=== PATIENT | female | born 1945 | race Caucasian/White ===

== ENCOUNTER 2016-08-28 22:02 | Inpatient (IN) | payer MEDICARE ==
[~2016-08-28] VITALS: Ht 165.1 cm; Wt 123.0 kg
[~2016-08-28 22:02] MED LIST: ATEN-104 PO; LOSA100T PO; PROV10TA PO; SERO50TA PO
[2016-08-28 22:08] VITALS: PULSE 70; RESP 18; TEMP 97.8; O2SAT 95
[2016-08-28 22:11] VITALS: BP 201/88
[2016-08-28] MEDS ORDERED: LORazepam 2 MG/ML VIAL IV ONE (22:15)
[2016-08-28] MEDS ORDERED: LISI2.5T3 PO (22:24)
[2016-08-28] MEDS ORDERED: SERT25TA83 PO (22:24)
[2016-08-28] MEDS ORDERED: ATEN100T PO (22:24)
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
[2016-08-28 22:39] LABS: AUTOMATED NEUTROPHIL # 9.6 TH/MM3 (1.8-7.7); BASOPHIL # 0.1 TH/MM3 (0-0.2); BASOPHIL % 0.7 % (0.0-2.0); EOSINOPHIL # 0.1 TH/MM3 (0-0.4); EOSINOPHIL % 0.7 % (0.0-4.0); HEMATOCRIT 39.3 % (35.0-46.0); HEMO FLAGS DIFF FINAL; LYMPH % 14.4 % (9.0-44.0); LYMPHOCYTE # 1.8 TH/MM3 (1.0-4.8); MEAN CELL VOLUME 81.5 FL (80.0-100.0); MEAN CORPUSCULAR HEMOGLOBIN 27.7 PG (27.0-34.0); MEAN CORPUSCULAR HGB CONC 33.9 % (32.0-36.0); MONO % 6.3 % (0.0-8.0); NEUT % 77.9 % (16.0-70.0); PLATELET COUNT 258 TH/MM3 (150-450); RED BLOOD COUNT 4.82 MIL/MM3 (4.00-5.30); RED CELL DISTRIBUTION WIDTH 16.2 % (11.6-17.2); WHITE BLOOD COUNT 12.3 TH/MM3 (4.0-11.0)
[2016-08-28 22:54] LABS: ANION GAP 9 MEQ/L (5-15); AST (GOT) 58 U/L (15-37); BLOOD UREA NITROGEN 20 MG/DL (7-18); CHLORIDE 108 MEQ/L (98-107); GLOMERULAR FILTRATION RATE 43 ML/MIN (>89); POTASSIUM 3.8 MEQ/L (3.5-5.1); SODIUM (NA) 145 MEQ/L (136-145)
[2016-08-28 22:57] LABS: ALKALINE PHOSPHATASE 91 U/L (45-117); ALT (GPT) 71 U/L (10-53); TOTAL BILIRUBIN ADULT 0.7 MG/DL (0.2-1.0)
[2016-08-29] VITALS (7 sets, daily range): BP systolic 146–199; BP diastolic 71–89; PULSE 62–77; RESP 16–24; TEMP 98.6; O2SAT 94–98
[2016-08-29 00:41] LABS: AMPHETAMINE, URINE NEG (NEG); BARBITURATES, URINE NEG (NEG); COCAINE, URINE NEG (NEG)
[2016-08-29 00:45] LABS: BLOOD, URINE TRACE (NEG); COMMENT (UR) CULT NOT INDICATED; CULTURE IF INDICATED CULT NOT INDICATED; GLUCOSE,URINE NEG (NEG); HYALINE CAST, URINE INNUM /lpf (RARE); KETONE, URINE NEG (NEG); MUCUS URINE MANY /lpf (OCC); NITRITE,URINE NEG (NEG); SQUAMOUS EPITHELIAL CELL URINE 3 /hpf (0-5); URINE COLOR DARK-YELLOW (YELLW/STRAW)
[2016-08-29] MEDS ORDERED: ATENOLOL 100 MG TAB PO ONE (07:00)
[2016-08-29] MEDS ORDERED: LISINOPRIL 5 MG TAB PO ONE (07:00)
[2016-08-29] MEDS ORDERED: QUET-87 PO (12:09)
[2016-08-29] MEDS ORDERED: LOSA100T PO (12:09)
[2016-08-29] MEDS ORDERED: NIFE60TA58 PO (12:09)
[2016-08-29] MEDS ORDERED: HALOPERIDOL 2 MG TAB PO ONE (13:00)
[2016-08-29] MEDS ORDERED: PILL SPLITTER OTHER PRN (15:15)
[2016-08-29] MEDS ORDERED: MAGNESIUM HYDROXIDE SUSP 30 ML CUP PO PRN ×2 (15:30→20:30)
[2016-08-29] MEDS ORDERED: TEMAZEPAM 15 MG CAP PO PRN (15:30)
[2016-08-29] MEDS ORDERED: ACETAMINOPHEN 325 MG TAB PO PRN (15:30)
[2016-08-29] MEDS ORDERED: ALUMINUM/MAGNESIUM/SIMETH 30 ML CUP PO PRN ×2 (15:30→20:30)
[2016-08-29] MEDS ORDERED: OLANZapine IM 10 MG VIAL IM ONE ×2 (20:15→20:30)
[2016-08-29] MEDS ORDERED: cloNIDine HCL 0.2 MG TAB PO ONE (20:15)
[2016-08-29] MEDS ORDERED: LORazepam 2 MG/ML VIAL - age > 65 yrs IM PRN (20:30)
[2016-08-29] MEDS ORDERED: LORazepam 0.5 MG TAB age > 65 yrs PO PRN (20:30)
[2016-08-29] MEDS: REMOVE OLD NICOTINE PATCH T-DERMAL SCH (21:00)
[2016-08-29] MEDS ORDERED: QUEtiapine FUMARATE 100 MG TAB PO SCH (21:00)
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
[2016-08-30 06:41] VITALS: BP 172/85
[2016-08-30 06:52] VITALS: BP 172/85; PULSE 55; RESP 18; TEMP 98.7; O2SAT 94
[2016-08-30] MEDS: LOSARTAN 50 MG TAB PO SCH (07:19)
[2016-08-30] MEDS ORDERED: ATENOLOL 100 MG TAB PO SCH (09:00)
[2016-08-30] MEDS ORDERED: NIFEdipine 60 MG SUSTAINED RELEASE TAB PO SCH (09:00)
[2016-08-30] MEDS ORDERED: NICOTINE 21 MG/24 HR PATCH T-DERMAL SCH (09:00)
[2016-08-30] MEDS ORDERED: OLANZapine IM 10 MG VIAL IM SCH (10:15)
[2016-08-30] MEDS ORDERED: LORazepam 2 MG/ML VIAL IM ONE (10:30)
[2016-08-30] MEDS ORDERED: LORazepam 2 MG/ML VIAL IM SCH (10:30)
--- NOTE | 2016-08-30 11:28 | PD.CONS ---
Provisional Diagnosis Admission Date August 29, 2016 at 12:58 History of Present Illness Service Psychiatry Consult Requested By Attending psychiatrist Reason for Consult Second opinion Norris act Primary Care Physician Earlene Farfan Jr, MD HPI Patient is a 68 throughout female admitted to Dr. rasheed's service under the Norris act, his dictation reviewed and agreed with. Patient seen by me on unit patient remains intense with rapid pressured speech markedly delusional and psychotic. Dr. lucas has signed first opinion petition supporting Norris act. I agree. Patient meets criteria for involuntary psychiatric hospitalization under the Norris act. Thus I will cosign second opinion petition supporting Past Family Social History Coded Allergies: Sulfa (Verified Allergy, Severe, rash, 08/28/16) GEN'L BODY RASH Allopurinol (Verified Allergy, Unknown, 08/28/16) GENERAL BODY SEVERE RASH Cultivated Oat Pollen (Unverified Allergy, Unknown, 08/28/16) Reported Medications Nifedipine ER 24 HR 60 Mg Tab60 Mg PO DAILY #30 TAB Ref 0 08/29/16 Quetiapine ER 150 Mg [id number] Mg PO HS Ref 0 08/29/16 Losartan 100 Mg [id number] Mg PO DAILY #30 TAB Ref 0 08/29/16 Sertraline 25 Mg [id number] PO DAILY #30 TAB Ref 0 08/28/16 Atenolol 100 Mg [id number] Mg PO DAILY #30 TAB Ref 0 08/28/16 Discontinued Reported Medications Lisinopril 2.5 Mg TabUnknown Dose PO DAILY #30 TAB Ref 0 08/28/16 Current Medications Medications (Trade) Dose Ordered Sig/Evonne Route Start Time Stop Time Status Last Admin (Tenormin) 100 mg DAILY PO 08/30/16 09:00 (Cozaar) 100 mg DAILY PO 08/30/16 09:00 08/30/16 07:19 (SEROquel) 150 mg HS PO 08/29/16 21:00 (Pill Splitter) 1 ea UNSCH PRN OTHER 08/29/16 15:15 (Procardia Xl) 60 mg DAILY PO 08/30/16 09:00 (Restoril) 30 mg HS PRN PO 08/29/16 15:30 (Ativan) 0.5 mg Q12H PRN PO 08/29/16 20:30 (Ativan Inj) 0.5 mg Q12H PRN IM 08/29/16 20:30 (Tylenol) 650 mg Q4H PRN PO 08/29/16 20:30 (Milk Of Magnesia Liq) 30 ml DAILY PRN PO 08/29/16 20:30 (Mag-Al Plus Susp Liq) 30 ml Q6H PRN PO 08/29/16 20:30 (Habitrol 21 Mg Patch.24 Hr) 1 patch DAILY T-DERMAL 08/30/16 09:00 Miscellaneous Information 1 HS T-DERMAL 08/29/16 21:00 (ZyPREXA INJ) 5 mg UNSCH IM 08/30/16 10:15 08/31/16 10:16 (Ativan Inj) 1 mg UNSCH IM 08/30/16 10:30 08/31/16 10:31 (Ativan Inj) 1 mg ONCE PRN IM 08/31/16 10:30 08/31/16 23:59 Physical Exam Vital Signs Vital Signs Date Time Temp Pulse Resp B/P Pulse Ox O2 Delivery O2 Flow Rate FiO2 08/30/16 06:52 98.7 55 18 172/85 94 08/29/16 09:37 Room Air 08/29/16 05:09 2 Mental Status Examination Speech: Pressured, Rapid Orientation: Person Memory: Impaired (describe) Thought Process: Loose Association Thought Content: Other (disorganized) Fund of Knowledge Poor Hallucination Type: None (vaguely denies) Attention and Concentration: Easily Distracted Suicidal Ideation: No (denies) Previous Suicide Attempts: No (denies) Homicidal Ideation: No (denies) Previous Homicide Attempts: No (denies) Insight: Poor Judgment: Poor Affect: Other (marked increased range and intensity) Mood: Manic Motor Activity: Normal gait Assessment & Plan Problem List: (1) Bipolar I, most recent episode manic, severe with psychotic behavior ICD Code: F31.2 Assessment & Plan Estimated LOS: Michael Daniels MD August 30, 2016 11:28
[2016-08-30 12:00] VITALS: BP 153/78; PULSE 56
[2016-08-30] MEDS: ATENOLOL 25 MG TAB PO SCH (12:30)
--- NOTE | 2016-08-30 12:42 | PD.CONS ---
HPI Service [facility] Hospitalists Consult Requested By Dr. Whitman Reason for Consult Medical Management Primary Care Physician Earlene Farfan Jr, MD Diagnoses: History of Present Illness Pt is a 71 y/o F admitted to the Psychiatric Service of Dr. Whitman. Pt has a h/o bipolar disorder. Pt exhibiting psychosis and felt to be the the manic phase of her bipolar disease. Per nursing staff, pt lives by herself. Likely the pt has NOT been properly taking her medications. The medical team is consulted to assist with pt's HTN and other chronic medical conditions. Pt had been refusing her medications, but has now received zyrexa and is now more calm. Review of Systems ROS Limitations: Psychotic Constitutional: DENIES: Diaphoretic episodes, Fatigue, Fever, Weight gain, Weight loss, Chills, Dizziness, Change in appetite, Night Sweats Endocrine: DENIES: Heat/cold intolerance, Polydipsia, Polyuria, Polyphagia Eyes: DENIES: Blurred vision, Diplopia, Eye inflammation, Eye pain, Vision loss , Photosensitivity, Double Vision Ears, nose, mouth, throat: DENIES: Tinnitus, Hearing loss, Vertigo, Nasal discharge, Oral lesions, Throat pain, Hoarseness, Ear Pain, Running Nose, Epistaxis, Sinus Pain, Toothache, Odynophagia Respiratory: DENIES: Apneas, Cough, Snoring, Wheezing, Hemoptysis, Sputum production, Shortness of breath Cardiovascular: DENIES: Chest pain, Palpitations, Syncope, Dyspnea on Exertion , PND, Lower Extremity Edema, Orthopnea, Claudication Gastrointestinal: DENIES: Abdominal pain, Black stools, Bloody stools, BRB per rectum, Constipation, Diarrhea, GERD, Nausea, Reflux, Vomiting, Difficulty Swallowing, Anorexia Genitourinary: DENIES: Urinary frequency, Urinary incontinence, Urgency, Hematuria, Dysuria, Nocturia Musculoskeletal: DENIES: Joint pain, Muscle aches, Stiffness, Joint Swelling, Back pain, Neck pain Integumentary: DENIES: Abnormal pigmentation, Pruritus, Rash, Nail changes, Breast masses, Breast skin changes, Nipple discharge Hematologic/lymphatic: DENIES: Bruising, Lymphadenopathy Immunologic/allergic: DENIES: Eczema, Urticaria Neurologic: DENIES: Abnormal gait, Headache, Localized weakness, Paresthesias, Seizures, Speech Problems, Tremor, Poor Balance Psychiatric: COMPLAINS OF: History of Bipolar, DENIES: Anxiety, Confusion, Mood changes, Depression, Hallucinations, Agitation, Suicidal Ideation, Homicidal Ideation, Delusions, History of Schizophrenia Past Family Social History Past Medical History 1) hypertension 2) COPD 3) CHF, diastolic, mild 4) aortic stenosis 5) hyperlipidemia 6) bipolar disorder 7) diverticulosis 8) fibromyalgia 9) anxiety 10) gout Past Surgical History 1) colonoscopy 2) dilation and curettage 3) hysteroscopy 4) total abdominal hysterectomy with bilateral salpingotomy and oophorectomy Allergies: Coded Allergies: Sulfa (Verified Allergy, Severe, rash, 08/28/16) GEN'L BODY RASH Allopurinol (Verified Allergy, Unknown, 08/28/16) GENERAL BODY SEVERE RASH Cultivated Oat Pollen (Unverified Allergy, Unknown, 08/28/16) Family History Noncontributory Social History - Not a current smoker - Denies alcohol use - Denies illicit street drugs Physical Exam Vital Signs Vital Signs Date Time Temp Pulse Resp B/P Pulse Ox O2 Delivery O2 Flow Rate FiO2 08/30/16 06:52 98.7 55 18 172/85 94 08/30/16 06:41 172/85 08/29/16 23:11 173/89 08/29/16 14:30 98.6 76 24 192/86 Physical Exam GENERAL: This is a well-nourished, well-developed patient, in no apparent distress. SKIN: No rashes, ecchymoses or lesions. Cool and dry. HEAD: Atraumatic. Normocephalic. No temporal or scalp tenderness. EYES: Pupils equal round and reactive. Extraocular motions intact. No scleral icterus. No injection or drainage. ENT: Nose without bleeding, purulent drainage or septal hematoma. Throat without erythema, tonsillar hypertrophy or exudate. Uvula midline. Airway patent. NECK: Trachea midline. No JVD or lymphadenopathy. Supple, nontender, no meningeal signs. CARDIOVASCULAR: Regular rate and rhythm without murmurs, gallops, or rubs. RESPIRATORY: Clear to auscultation. Breath sounds equal bilaterally. No wheezes , rales, or rhonchi. GASTROINTESTINAL: Abdomen soft, non-tender, nondistended. No hepato-splenomegaly , or palpable masses. No guarding. MUSCULOSKELETAL: Extremities without clubbing, cyanosis, or edema. No joint tenderness, effusion, or edema noted. No calf tenderness. Negative Homans sign bilaterally. NEUROLOGICAL: Awake and alert. Cranial nerves II through XII intact. Motor and sensory grossly within normal limits. Five out of 5 muscle strength in all muscle groups. Normal speech. Result Diagram: 08/28/16221808/28/162218 Assessment and Plan Problem List: (1) Bipolar I, most recent episode manic, severe with psychotic behavior Status: Acute Plan: - Management per psychiatry (2) HTN (hypertension) Status: Acute Plan: - Cozaar 100 mg daily - Unclear that patient's been taking blood pressure medications at home - I'm hesitant to restart all of her blood pressure medications and cause her hypotension - Resume atenolol at 25 mg daily (home dose 100 mg daily) - Hold Procardia XL (home dose 60 mg by mouth twice a day) - Catapres when necessary (3) COPD (chronic obstructive pulmonary disease) Status: Acute Plan: - Resume anora Ellipta - Boubacar Drake DO August 30, 2016 12:42
[2016-08-30] MEDS: UMECLIDINIUM 62.5 MCG/VILANTEROL 25 MCG INHALER INH SCH (12:45)
[2016-08-30] MEDS ORDERED: RESP: ALBUTEROL 2.5 MG/IPRATROPIUM 0.5 MG NEB (PRN) NEB (12:45)
[2016-08-30] MEDS: LORazepam 2 MG/ML VIAL IM PRN ×2 (18:52→22:06)
[2016-08-30 19:15] VITALS: BP 172/70; PULSE 53; TEMP 98.6; O2SAT 94
[2016-08-30] MEDS: REMOVE OLD NICOTINE PATCH T-DERMAL SCH (21:00)
[2016-08-30] MEDS: OLANZapine ODT 5 MG TAB PO SCH (21:00)
[2016-08-31] MEDS: cloNIDine HCL 0.2 MG TAB PO PRN (04:49)
[2016-08-31 05:41] VITALS: BP 185/78; PULSE 70; RESP 17; TEMP 99.2; O2SAT 92
[2016-08-31] MEDS: LOSARTAN 50 MG TAB PO SCH (09:00)
[2016-08-31] MEDS: OLANZapine ODT 5 MG TAB PO SCH ×2 (09:00→20:56)
[2016-08-31] MEDS: ATENOLOL 25 MG TAB PO SCH (09:00)
[2016-08-31] MEDS: UMECLIDINIUM 62.5 MCG/VILANTEROL 25 MCG INHALER INH SCH (09:00)
[2016-08-31] MEDS: NIFEdipine 60 MG SUSTAINED RELEASE TAB PO SCH (09:27)
[2016-08-31 10:32] VITALS: BP 159/70; PULSE 51
--- NOTE | 2016-08-31 10:32 | HHI.PR ---
Subjective Remarks No new complaints. Objective Vitals Vital Signs Date Time Temp Pulse Resp B/P Pulse Ox O2 Delivery O2 Flow Rate FiO2 08/31/16 05:41 99.2 70 17 185/78 92 08/30/16 19:15 98.6 53 172/70 94 08/30/16 12:00 56 153/78 08/30/16 08/30/16 08/31/16 15:00 23:00 07:00 Intake Total 0 ml 60 ml 120 ml Balance 0 ml 60 ml 120 ml Intake Oral 0 ml 60 ml 120 ml # Voids 1 2 # Bowel Movements 1 Result Diagram: 08/28/16221808/28/162218 Objective Remarks GENERAL: This is a well-nourished, well-developed patient, in no apparent distress. CARDIOVASCULAR: Regular rate and rhythm without murmurs, gallops, or rubs. RESPIRATORY: Clear to auscultation. Breath sounds equal bilaterally. No wheezes , rales, or rhonchi. GASTROINTESTINAL: Abdomen soft, non-tender, nondistended. Normal active bowel sounds MUSCULOSKELETAL: Extremities without clubbing, cyanosis, or edema. NEURO: Alert & Oriented x4 to person, place, time, situation. Moves all ext x4 A/P Problem List: (1) Bipolar I, most recent episode manic, severe with psychotic behavior Status: Acute Plan: - Management per psychiatry (2) HTN (hypertension) Status: Acute Plan: - Cozaar 100 mg daily - Unclear that patient's been taking blood pressure medications at home - hesitant to restart all of her blood pressure medications and cause her hypotension - Resume atenolol at 25 mg daily (home dose 100 mg daily) - resume Procardia XL 60mg BID, 08/31 - Catapres when necessary - observe BP readings, consider increasing atenolol (3) COPD (chronic obstructive pulmonary disease) Status: Acute Plan: - Resume anora Ellipta - Boubacar Drake DO August 31, 2016 10:32
[2016-08-31 10:36] LABS: HEMOGLOBIN A1a 1.3 %; HEMOGLOBIN A1b 1.9 %; HEMOGLOBIN Ao 84.6 %; HEMOGLOBIN LA1C 2.1 %; HEMOGLOBIN P3 5.5 %
[2016-08-31 10:40] LABS: ANION GAP 10 MEQ/L (5-15); BICARBONATE 26.2 MEQ/L (21.0-32.0); BLOOD UREA NITROGEN 22 MG/DL (7-18); CHLORIDE 110 MEQ/L (98-107); GLOMERULAR FILTRATION RATE 66 ML/MIN (>89); POTASSIUM 3.3 MEQ/L (3.5-5.1); SODIUM (NA) 146 MEQ/L (136-145)
[2016-08-31 10:50] LABS: FREE T4 1.15 NG/DL (0.76-1.46); HDL CHOLESTEROL 49.3 MG/DL (40.0-60.0); LDL CHOLESTEROL 93 MG/DL (0-99)
[2016-08-31] MEDS: NYSTATIN 100,000 U/GM PWD 15 GM BTL TOPICAL SCH ×2 (16:00→20:56)
[2016-08-31 17:08] VITALS: BP 177/71; PULSE 51
[2016-08-31 20:16] VITALS: BP 177/71; PULSE 51; RESP 16; TEMP 98; O2SAT 97
[2016-09-01 02:30] VITALS: BP 187/77
[2016-09-01] MEDS: cloNIDine HCL 0.2 MG TAB PO PRN (02:34)
[2016-09-01 05:28] VITALS: BP 181/79; PULSE 63; RESP 18; TEMP 98.1
[2016-09-01 05:55] VITALS: BP 173/79; PULSE 49
[2016-09-01] MEDS: LOSARTAN 50 MG TAB PO SCH (09:00)
[2016-09-01] MEDS: UMECLIDINIUM 62.5 MCG/VILANTEROL 25 MCG INHALER INH SCH (09:00)
[2016-09-01] MEDS: ATENOLOL 25 MG TAB PO SCH (09:00)
[2016-09-01] MEDS: NIFEdipine 60 MG SUSTAINED RELEASE TAB PO SCH (09:00)
[2016-09-01] MEDS: OLANZapine ODT 5 MG TAB PO SCH ×2 (09:00→21:00)
[2016-09-01] MEDS: NYSTATIN 100,000 U/GM PWD 15 GM BTL TOPICAL SCH ×2 (09:00→21:00)
[2016-09-01] MEDS ORDERED: POTASSIUM CHLORIDE 20 MEQ CONTROLLED RELEASE TAB PO ONE (09:45)
[2016-09-01] MEDS ORDERED: POTASSIUM CHLORIDE 25 MEQ EFFERVESCENT TAB PO ONE (15:45)
[2016-09-02] MEDS: LOSARTAN 50 MG TAB PO SCH ×2 (09:00→09:18)
[2016-09-02] MEDS: OLANZapine ODT 5 MG TAB PO SCH ×4 (09:00→21:00)
[2016-09-02] MEDS: NYSTATIN 100,000 U/GM PWD 15 GM BTL TOPICAL SCH ×3 (09:00→21:00)
[2016-09-02] MEDS: UMECLIDINIUM 62.5 MCG/VILANTEROL 25 MCG INHALER INH SCH ×2 (09:00→09:18)
[2016-09-02] MEDS: ATENOLOL 25 MG TAB PO SCH ×2 (09:00→09:17)
[2016-09-02] MEDS: NIFEdipine 60 MG SUSTAINED RELEASE TAB PO SCH ×2 (09:00→09:17)
[2016-09-02] MEDS: OLANZapine IM 10 MG VIAL IM PRN (13:38)
[2016-09-02 19:33] VITALS: BP 157/104; PULSE 75; RESP 16; TEMP 99.1; O2SAT 98
[2016-09-03 05:36] VITALS: BP 160/75; PULSE 72; RESP 17; TEMP 97.8; O2SAT 98
[2016-09-03 08:12] LABS: ALKALINE PHOSPHATASE 87 U/L (45-117); ALT (GPT) 50 U/L (10-53); ANION GAP 12 MEQ/L (5-15); AST (GOT) 46 U/L (15-37); BICARBONATE 22.3 MEQ/L (21.0-32.0); BLOOD UREA NITROGEN 26 MG/DL (7-18); CHLORIDE 108 MEQ/L (98-107); GLOMERULAR FILTRATION RATE 45 ML/MIN (>89); POTASSIUM 3.5 MEQ/L (3.5-5.1); SODIUM (NA) 142 MEQ/L (136-145); TOTAL BILIRUBIN ADULT 0.7 MG/DL (0.2-1.0)
[2016-09-03] MEDS: LOSARTAN 50 MG TAB PO SCH (09:00)
[2016-09-03] MEDS: NYSTATIN 100,000 U/GM PWD 15 GM BTL TOPICAL SCH ×2 (09:59→21:00)
[2016-09-03] MEDS: ATENOLOL 25 MG TAB PO SCH ×2 (09:59→10:39)
[2016-09-03] MEDS: OLANZapine ODT 5 MG TAB PO SCH ×2 (09:59→10:38)
[2016-09-03] MEDS: NIFEdipine 60 MG SUSTAINED RELEASE TAB PO SCH ×2 (09:59→10:39)
[2016-09-03] MEDS: UMECLIDINIUM 62.5 MCG/VILANTEROL 25 MCG INHALER INH SCH ×2 (10:00→10:40)
[2016-09-03] MEDS: OLANZapine IM 10 MG VIAL IM PRN ×2 (10:53→21:31)
[2016-09-03] MEDS: VALPROIC ACID SYRUP 250 MG/5 ML UDC PO SCH ×2 (13:45→21:00)
[2016-09-03] MEDS: ACETAMINOPHEN 325 MG TAB PO PRN (18:29)
[2016-09-04 06:36] VITALS: BP 154/77; PULSE 79; RESP 18; TEMP 97.7; O2SAT 99
[2016-09-04] MEDS: LOSARTAN 50 MG TAB PO SCH (08:15)
[2016-09-04] MEDS: VALPROIC ACID SYRUP 250 MG/5 ML UDC PO SCH ×2 (08:15→19:58)
[2016-09-04] MEDS: OLANZapine ODT 5 MG TAB PO SCH ×2 (10:34→19:58)
[2016-09-04] MEDS: NYSTATIN 100,000 U/GM PWD 15 GM BTL TOPICAL SCH ×2 (10:41→20:39)
[2016-09-04] MEDS ORDERED: LORazepam 1 MG TAB PO PRN (13:15)
[2016-09-04] MEDS ORDERED: OLANZapine IM 10 MG VIAL IM PRN (13:15)
[2016-09-04] MEDS ORDERED: OLANZapine IM 10 MG VIAL IM ONE (13:15)
[2016-09-04] MEDS: LORazepam 2 MG/ML VIAL IM PRN ×2 (14:35→21:24)
[2016-09-05 05:41] VITALS: BP 181/73; PULSE 66; RESP 16; TEMP 98.2; O2SAT 93
[2016-09-05] MEDS: cloNIDine HCL 0.2 MG TAB PO PRN (05:52)
[2016-09-05] MEDS: OLANZapine ODT 5 MG TAB PO SCH ×2 (09:00→21:19)
[2016-09-05] MEDS: LOSARTAN 50 MG TAB PO SCH (09:00)
[2016-09-05] MEDS: NYSTATIN 100,000 U/GM PWD 15 GM BTL TOPICAL SCH ×2 (09:00→21:00)
[2016-09-05] MEDS: UMECLIDINIUM 62.5 MCG/VILANTEROL 25 MCG INHALER INH SCH (09:00)
[2016-09-05] MEDS: NIFEdipine 60 MG SUSTAINED RELEASE TAB PO SCH (09:00)
[2016-09-05] MEDS: ATENOLOL 25 MG TAB PO SCH (09:00)
[2016-09-05] MEDS: VALPROIC ACID SYRUP 250 MG/5 ML UDC PO SCH ×2 (09:00→21:19)
[2016-09-05 11:05] VITALS: BP 96/46; PULSE 60; RESP 16; TEMP 97.6; O2SAT 98
[2016-09-05 13:26] VITALS: BP 126/59; PULSE 60; RESP 16
[2016-09-05] MEDS ORDERED: cloNIDine HCL 0.1 MG TAB PO SCH (21:00)
[2016-09-05 21:40] VITALS: BP 150/79
[2016-09-05] MEDS: ACETAMINOPHEN 325 MG TAB PO PRN (23:48)
[2016-09-06 02:30] VITALS: BP 72/42; PULSE 51; RESP 42; TEMP 97.5; O2SAT 85
[2016-09-06 03:00] VITALS: BP 72/40; PULSE 54; RESP 36; O2SAT 89
[2016-09-06 03:04] VITALS: O2SAT 88
[2016-09-06 03:38] LABS: BLOOD GAS BASE EXCESS -5.7 mmol/L (-2-2); BLOOD GAS CARBOXYHEMOGLOBIN 1.6 % (0-4); BLOOD GAS HCO3 19 mmol/L (22-26); BLOOD GAS METHEMOGLOBIN 1.1 % (0-2); BLOOD GAS O2 HGB SATURATION 96 % (90-100); BLOOD GAS PCO2 35 mmHg (38-42); BLOOD GAS PO2 117 mmHg (61-120); BLOOD GAS TOTAL HGB 12.6 G/DL (12.0-16.0); CRITICAL VALUE NO; DRAW SITE LT BRACHIAL; FIO2 100 %; LITER FLOW 15 L/M; NUMBER OF ARTERIAL PUNCTURES 1; TEMP CORR TO 98.6
[2016-09-06 03:39] LABS: STAT YES
--- NOTE | 2016-09-06 05:41 | RADRPT ---
EXAM DATE/TIME: 09/06/2016 04:04 [facility] COMPARISON: CHEST PA & LAT, November 23, 2012, 11:35. INDICATIONS : Shortness of breath. MEDICAL HISTORY : None. SURGICAL HISTORY : None. ENCOUNTER: Initial ACUITY: 1 day PAIN SCORE: Non-responsive. LOCATION: Bilateral chest FINDINGS: A single view of the chest demonstrates mild basilar density most characteristic of atelectasis. Elev ated right hemidiaphragm. No significant effusion. No pneumothorax. Mild cardiomegaly. CONCLUSION: 1. Basilar atelectasis. Elevated right hemidiaphragm. Hamzah Varner MD on September 06, 2016 at 5:38 Board Certified Radiologist. This report was verified electronically.
--- NOTE | 2016-09-06 15:36 | RADRPT ---
EXAM DATE/TIME: 09/06/2016 13:25 [facility] COMPARISON: No previous studies available for comparison. INDICATIONS : Left leg swelling. MEDICAL HISTORY : Hypercholesterolemia. Chronic obstructive pulmonary disease. Hypertension. Sleep apnea. Arthritis. Skin cancer. Gout. SURGICAL HISTORY : D&C. ENCOUNTER: Initial ACUITY: 1 day PAIN SCORE: 2/10 LOCATION: Left leg. TECHNIQUE: Venous ultrasound of the leg was performed from the inguinal ligament to the proximal calf. Real-simon e, color Doppler and spectral tracing, compression and augmentation techniques were used. FINDINGS: There is nearly occlusive thrombus in the left popliteal vein. There is occlusive thrombus in the lef t peroneal and posterior tibial veins. The common femoral vein and femoral veins are patent. CONCLUSION: Thrombus in the left popliteal, left peroneal, and left posterior tibial veins. Michael Downing MD on September 06, 2016 at 15:32 Board Certified Radiologist. This report was verified electronically.
--- NOTE | 2016-09-11 19:49 | MD ---
cc: ELISA LEDBETTER M.D., HARISH ADMISSION DATE: 08/29/2016 DISCHARGE DATE: 09/06/2016 ADMISSION DIAGNOSIS: AXIS I: Bipolar affective disorder, manic phase with psychotic symptoms. AXIS II: No diagnosis. AXIS III: Status post fractured skull. Hypertension. Hyperlipidemia. COPD. Gout. Status post hysterectomy. AXIS IV: Severity of psychosocial stressors moderate i.e. multiple medical problems, chronic psychiatric illness, limited financial resources. AXIS V: Current GAF score 30 DISCHARGE DIAGNOSIS: AXIS I: Bipolar affective disorder, manic phase with psychotic symptoms. AXIS II: No diagnosis. AXIS III: Status post fractured skull. Hypertension. Hyperlipidemia. COPD. Gout. Status post hysterectomy. Deep venous thrombosis. AXIS IV: Severity of psychosocial stressors moderate i.e. multiple medical problems, chronic psychiatric illness, limited financial resources. AXIS V: Current GAF score 30. BRIEF HISTORY: This 71-year-old white female was brought to the emergency room by [facility] where the Norris Act was initiated by the PA. It was reported that the patient had been walking in the neighborhood barefoot and in her nightgown. When initially evaluated, she was extremely hyperverbal with pressured speech, very delusional believing that a man had been abusing her for 25 years and that he had killed all her children and that she was afraid that he was going to kill her. Because of her totally disorganized thought processes and pressured speech, it was very difficult to obtain much meaningful information from her. Please refer to my initial evaluation for details. LABORATORY STUDIES: Significant lab workup: WBCs slightly elevated at 12.3. CMP was done on a different date and on 09/03 her BUN was slightly elevated at 26 and serum creatinine 1.17. Liver enzymes on admission were slightly elevated; i.e., AST 58 and ALT 71, and repeated on 09/03, AST 46 and ALT had normalized to 50. T4 and TSH were normal. Lipid profile unremarkable. Urine drug screen was positive for benzodiazepine. Blood alcohol level less than 3. Ultrasound of the lower extremity on 08/2016 showed occlusive thrombus in the left popliteal vein, occlusive thrombus in the left peroneal and posterior tibial veins. The common femoral vein and femoral vein are patent. Chest x-ray on 08/2016 showed mild basilar density characteristic of atelectasis, elevated right hemidiaphragm, no significant effusion, no pneumothorax, mild cardiomegaly. HOSPITAL COURSE: As mentioned initially she was extremely hyperverbal with pressured speech, totally disorganized and as such unable to provide any meaningful information. She maintained this throughout this hospital stay. She was observed to be quite delusional believing some other staff members were out to harm her. At times. she seemed to be experiencing auditory hallucinations. She also refused her prescribed medications for medical issues. As such at times emergency treatment had to be initiated. She was started on Depakene and Zyprexa and the doses of these medications were gradually titrated. She presented to the court and was ordered retained. Her neighbor, Mr. João Erickson, was appointed guardian advocate. On 09/05, she began to display swelling in the left leg. Dr. Ledbetter, the medical nurse on the case, continued to follow her up and ordered ultrasound of the lower extremities. In addition, CT scan of the brain was also ordered in view of her history of head trauma and cognitive deficits. As these were in process, her blood pressure dropped and as such she was transferred to the intensive medical care unit. I will continue to follow her on the medical floor. MD RUSSELL Rodriguez/[place] /7:26 PM /7:38 PM
== END 2016-09-06 03:36 | disposition short-term general hospital (02) | DRG 885 ==
LOC: NEPC 22:02 → NEDA 08-29 12:58 → H250 08-29 14:01 → HIMN 09-06 03:30
PROVIDERS: ADMIT Psychiatry & Neurology Psychiatry; ATTEND Psychiatry & Neurology Psychiatry
DX: F31.2 Bipolar disorder, current episode manic severe with psychotic features (principal); I50.32 Chronic diastolic (congestive) heart failure; J44.9 Chronic obstructive pulmonary disease, unspecified; Z68.42 Body mass index [BMI] 45.0-49.9, adult; E66.3 Overweight; M79.89 Other specified soft tissue disorders; I10 Essential (primary) hypertension; E78.5 Hyperlipidemia, unspecified; M10.9 Gout, unspecified; I35.0 Nonrheumatic aortic (valve) stenosis; M79.7 Fibromyalgia
CPT/HCPCS: 36600; 71010; 80048; 80053; 80061; 80307; 81001; 82805; 83036; 84439; 84443; 85025; 86592; 93971; 94664; 96374; J2060

== ENCOUNTER 2016-09-06 03:20 | Inpatient (IN) | payer MEDICARE ==
[2016-09-06] VITALS (26 sets, daily range): BP systolic 88–159; BP diastolic 46–80; PULSE 70–84; RESP 19–60; TEMP 97.1–98.3; O2SAT 81–100
[~2016-09-06] VITALS: Ht 162.6 cm; Wt 100.0 kg
[~2016-09-06 03:20] MED LIST changes: -ATEN-104 PO; +ATEN100T PO; +NIFE60TA58 PO; -PROV10TA PO; +QUET-87 PO; -SERO50TA PO; +SERT25TA83 PO
[2016-09-06] MEDS ORDERED: SODIUM CHLOR 0.9% 1000 ML INJ 1,000 ML IV SCH (03:55)
[2016-09-06] MEDS: CHLORHEXIDINE GLUCONATE 2 % 1 PACK (2 CLOTHS) TOP SCH (04:00)
[2016-09-06] MEDS ORDERED: CHLORHEXIDINE GLUCONATE 2 % 1 PACK (2 CLOTHS) TOP PRN (04:00)
[2016-09-06] MEDS ORDERED: ONDANSETRON HCL 4 MG/2 ML VIAL IV PRN (04:00)
[2016-09-06] MEDS ORDERED: SODIUM CHLORIDE 0.9% FLUSH 10 ML FLUSH PRN (04:00)
[2016-09-06] MEDS ORDERED: RESP: ALBUTEROL 2.5 MG/IPRATROPIUM 0.5 MG NEB (PRN) INH (04:00)
[2016-09-06] MEDS ORDERED: SODIUM BICARBONATE 8.4% INJ 50 MEQ/50 ML SYR IV PUSH ONE ×2 (04:00→04:31)
[2016-09-06] MEDS ORDERED: METOCLOPRAMIDE HCL 10 MG/2 ML VIAL IV PRN (04:00)
[2016-09-06] MEDS ORDERED: MISCELLANEOUS NURSING INFORMATION XX SCH (04:00)
[2016-09-06 04:22] LABS: BASOPHIL # 0.1 TH/MM3 (0-0.2); BASOPHIL % 0.5 % (0.0-2.0); EOSINOPHIL % 0.2 % (0.0-4.0); HEMATOCRIT 36.6 % (35.0-46.0); HEMO FLAGS DIFF FINAL; LYMPH % 8.6 % (9.0-44.0); LYMPHOCYTE # 1.1 TH/MM3 (1.0-4.8); MEAN CELL VOLUME 83.5 FL (80.0-100.0); MEAN CORPUSCULAR HEMOGLOBIN 27.8 PG (27.0-34.0); MEAN CORPUSCULAR HGB CONC 33.3 % (32.0-36.0); MONO % 5.2 % (0.0-8.0); NEUT % 85.5 % (16.0-70.0); PLATELET COUNT 221 TH/MM3 (150-450); RED BLOOD COUNT 4.38 MIL/MM3 (4.00-5.30); RED CELL DISTRIBUTION WIDTH 16.8 % (11.6-17.2); WHITE BLOOD COUNT 12.8 TH/MM3 (4.0-11.0)
[2016-09-06] MEDS: RESP: ALBUTEROL 2.5 MG/IPRATROPIUM 0.5 MG NEB (SCH) INH ×4 (04:22→19:54)
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
[2016-09-06] MEDS: HEPARIN SODIUM - SQ 10,000 UNITS/ML VIAL SQ SCH ×2 (04:53→14:07)
[2016-09-06 04:59] LABS: ALKALINE PHOSPHATASE 70 U/L (45-117); ALT (GPT) 51 U/L (10-53); ANION GAP 13 MEQ/L (5-15); AST (GOT) 51 U/L (15-37); BICARBONATE 21.8 MEQ/L (21.0-32.0); BLOOD UREA NITROGEN 35 MG/DL (7-18); CHLORIDE 109 MEQ/L (98-107); GLOMERULAR FILTRATION RATE 26 ML/MIN (>89); POTASSIUM 3.5 MEQ/L (3.5-5.1); SODIUM (NA) 144 MEQ/L (136-145); TOTAL BILIRUBIN ADULT 0.5 MG/DL (0.2-1.0)
--- NOTE | 2016-09-06 05:07 | RADRPT ---
EXAM DATE/TIME: 09/06/2016 04:37 [facility] COMPARISON: No previous studies available for comparison. INDICATIONS : Altered mental status. RADIATION DOSE: 56.35 CTDIvol (mGy) MEDICAL HISTORY : Non-responsive. SURGICAL HISTORY : Non-responsive. ENCOUNTER: Initial ACUITY: 1 day PAIN SCALE: Non-responsive LOCATION: cranial TECHNIQUE: Multiple contiguous axial images were obtained of the head. Using automated exposure control and adj ustment of the mA and/or kV according to patient size, radiation dose was kept as low as reasonably a chievable to obtain optimal diagnostic quality images. FINDINGS: CEREBRUM: The ventricles are normal for age. No evidence of midline shift, mass lesion, hemorrhage or acute in farction. No extra-axial fluid collections are seen. POSTERIOR FOSSA: The cerebellum and brainstem are intact. The 4th ventricle is midline. The cerebellopontine angle i s unremarkable. EXTRACRANIAL: The visualized portion of the orbits is intact. SKULL: The calvaria is intact. No evidence of skull fracture. CONCLUSION: 1. No acute intracranial abnormalities. Cortical volume loss similar to November 2012. Hamzah Varner MD on September 06, 2016 at 5:02 Board Certified Radiologist. This report was verified electronically.
[2016-09-06] MEDS: SODIUM CHLOR 0.45% 1000 ML INJ 1,000 ML IV SCH ×3 (05:15→20:06)
[2016-09-06 06:26] LABS: BLOOD GAS BASE EXCESS 0.5 mmol/L (-2-2); BLOOD GAS CARBOXYHEMOGLOBIN 1.4 % (0-4); BLOOD GAS HCO3 26 mmol/L (22-26); BLOOD GAS METHEMOGLOBIN 1.2 % (0-2); BLOOD GAS O2 HGB SATURATION 96 % (90-100); BLOOD GAS OXYGEN CONTENT 16.3 Vol % (12.0-20.0); BLOOD GAS PCO2 48 mmHg (38-42); BLOOD GAS PO2 121 mmHg (61-120); CRITICAL VALUE NO; DRAW SITE LT RADIAL; LITER FLOW 13 L/M; NUMBER OF ARTERIAL PUNCTURES 1; STAT NO; TEMP CORR TO 98.6; ULNAR PULSE PRESENT
[2016-09-06] MEDS: SODIUM CHLORIDE 0.9% FLUSH 10 ML FLUSH SCH ×2 (09:00→20:05)
[2016-09-06] MEDS: DOCUSATE SODIUM 100 MG CAP PO SCH ×2 (09:00→20:05)
[2016-09-06] MEDS ORDERED: HEPARIN SODIUM - IV 10,000 UNITS/10 ML VIAL IV ONE (17:30)
[2016-09-06 17:34] LABS: HEMATOCRIT 37.1 % (35.0-46.0); MEAN CELL VOLUME 83.5 FL (80.0-100.0); MEAN CORPUSCULAR HEMOGLOBIN 27.4 PG (27.0-34.0); MEAN CORPUSCULAR HGB CONC 32.8 % (32.0-36.0); PLATELET COUNT 187 TH/MM3 (150-450); RED BLOOD COUNT 4.45 MIL/MM3 (4.00-5.30); RED CELL DISTRIBUTION WIDTH 16.3 % (11.6-17.2); REVIEW FLAG FINAL; WHITE BLOOD COUNT 11.4 TH/MM3 (4.0-11.0)
[2016-09-06] MEDS: HEPARIN-D5W INJ 250 ML IV SCH (17:45)
[2016-09-06 17:56] LABS: APTT (PATIENT) 21.1 SEC (24.3-30.1); INTERNATIONAL NORMALIZED RATIO 1.1 RATIO; PROTHROMBIN TIME - PATIENT 12.3 SEC (9.8-11.6)
[2016-09-06] MEDS: VALPROIC ACID SYRUP 250 MG/5 ML UDC PO SCH (20:05)
[2016-09-06] MEDS: ACETAMINOPHEN 325 MG TAB PO PRN (20:15)
[2016-09-06] MEDS ORDERED: VALPROIC ACID 250 MG CAP PO SCH (21:00)
[2016-09-06] MEDS ORDERED: HEPARIN SODIUM - IV 10,000 UNITS/10 ML VIAL IV PRN ×2 (23:00)
[2016-09-06 23:03] LABS: BACTERIA, URINE MANY /hpf; BLOOD, URINE LARGE (NEG); GLUCOSE,URINE NEG (NEG); KETONE, URINE NEG (NEG); MUCUS URINE FEW /lpf (OCC); NITRITE,URINE NEG (NEG); PH, URINE 5.5 (5.0-8.5); SQUAMOUS EPITHELIAL CELL URINE 8 /hpf (0-5); URINE COLOR YELLOW (YELLW/STRAW)
[2016-09-06 23:05] LABS: COMMENT (UR) CATH-CULTURE IND; CULTURE IF INDICATED CATH CULTURE IND
[2016-09-07] VITALS (14 sets, daily range): BP systolic 110–156; BP diastolic 59–81; PULSE 69–95; RESP 18–32; TEMP 96.7–99; O2SAT 88–96
[2016-09-07] MEDS: SODIUM CHLOR 0.45% 1000 ML INJ 1,000 ML IV SCH (02:04)
[2016-09-07] MEDS: HEPARIN-D5W INJ 250 ML IV SCH (02:05)
[2016-09-07] MEDS: CHLORHEXIDINE GLUCONATE 2 % 1 PACK (2 CLOTHS) TOP SCH (02:06)
[2016-09-07 02:26] LABS: APTT (PATIENT) 144.5 SEC (24.3-30.1)
[2016-09-07] MEDS: RESP: ALBUTEROL 2.5 MG/IPRATROPIUM 0.5 MG NEB (SCH) INH ×4 (04:16→22:19)
[2016-09-07 04:44] LABS: AUTOMATED NEUTROPHIL # 7.8 TH/MM3 (1.8-7.7); BASOPHIL # 0.1 TH/MM3 (0-0.2); BASOPHIL % 0.5 % (0.0-2.0); EOSINOPHIL # 0.1 TH/MM3 (0-0.4); EOSINOPHIL % 1.1 % (0.0-4.0); HEMATOCRIT 33.5 % (35.0-46.0); HEMO FLAGS DIFF FINAL; LYMPHOCYTE # 2.6 TH/MM3 (1.0-4.8); MEAN CELL VOLUME 82.3 FL (80.0-100.0); MEAN CORPUSCULAR HEMOGLOBIN 27.7 PG (27.0-34.0); MEAN CORPUSCULAR HGB CONC 33.7 % (32.0-36.0); MONO % 10.4 % (0.0-8.0); PLATELET COUNT 197 TH/MM3 (150-450); RED BLOOD COUNT 4.07 MIL/MM3 (4.00-5.30); RED CELL DISTRIBUTION WIDTH 16.4 % (11.6-17.2); WHITE BLOOD COUNT 11.8 TH/MM3 (4.0-11.0)
[2016-09-07 04:51] LABS: ALKALINE PHOSPHATASE 67 U/L (45-117); ALT (GPT) 40 U/L (10-53); ANION GAP 12 MEQ/L (5-15); APTT (PATIENT) 81.4 SEC (24.3-30.1); AST (GOT) 28 U/L (15-37); BICARBONATE 25.6 MEQ/L (21.0-32.0); BLOOD UREA NITROGEN 28 MG/DL (7-18); CHLORIDE 104 MEQ/L (98-107); GLOMERULAR FILTRATION RATE 43 ML/MIN (>89); MAGNESIUM 2.1 MG/DL (1.5-2.5); SODIUM (NA) 142 MEQ/L (136-145); TOTAL BILIRUBIN ADULT 0.4 MG/DL (0.2-1.0)
[2016-09-07 04:56] LABS: POTASSIUM 2.9 MEQ/L (3.5-5.1)
[2016-09-07] MEDS ORDERED: POTASSIUM CHLOR 40 MEQ PREMIX 100 ML IV SCH (05:30)
[2016-09-07] MEDS ORDERED: IOHEXOL 350 MG/ML 10 ML VIAL (for RAD DIAG) IV ONE (05:53)
--- NOTE | 2016-09-07 06:05 | RADRPT ---
EXAM DATE/TIME: 09/07/2016 05:50 [facility] COMPARISON: No previous studies available for comparison. INDICATIONS : Short of breath. IV CONTRAST: 75 cc Omnipaque 350 (iohexol) IV RADIATION DOSE: 22.83 CTDIvol (mGy) MEDICAL HISTORY : Chronic obstructive pulmonary disease. Hypertension. Skin cancer. Aortic stenosis. SURGICAL HISTORY : None. ENCOUNTER: Initial ACUITY: 1 day PAIN SCALE: 0/10 LOCATION: chest TECHNIQUE: Volumetric scanning of the chest was performed using a pulmonary embolism protocol MIP images were re constructed. Using automated exposure control and adjustment of the mA and/or kV according to patien t size, radiation dose was kept as low as reasonably achievable to obtain optimal diagnostic quality images. FINDINGS: The examination is positive for pulmonary emboli with a large emboli noted at the distal left pulmona ry artery and branches. There are also smaller right-sided pulmonary emboli in segmental branches. Small right-sided pleural effusion. Scattered subsegmental air space disease in the lungs. No pericar dial effusion. No adenopathy. No acute findings in the upper abdomen. CONCLUSION: 1. Examination positive for moderate size bilateral pulmonary emboli. Hamzah Varner MD on September 07, 2016 at 6:01 Board Certified Radiologist. This report was verified electronically.
[2016-09-07] MEDS ORDERED: POTASSIUM CHLOR 20 MEQ PREMIX 100 ML ONE (06:15)
[2016-09-07] MEDS: POTASSIUM CHLOR 20 MEQ PREMIX 100 ML IV SCH ×4 (06:30→12:01)
[2016-09-07 06:45] LABS: BLOOD GAS BASE EXCESS -1.3 mmol/L (-2-2); BLOOD GAS CARBOXYHEMOGLOBIN 1.6 % (0-4); BLOOD GAS HCO3 23 mmol/L (22-26); BLOOD GAS METHEMOGLOBIN 1.1 % (0-2); BLOOD GAS O2 HGB SATURATION 91 % (90-100); BLOOD GAS OXYGEN CONTENT 14.4 Vol % (12.0-20.0); BLOOD GAS PCO2 35 mmHg (38-42); BLOOD GAS PO2 70 mmHg (61-120); BLOOD GAS TOTAL HGB 11.3 G/DL (12.0-16.0); TEMP CORR TO 98.6
[2016-09-07 06:46] LABS: CRITICAL VALUE NO; DRAW SITE RT RADIAL; LITER FLOW 5 L/M; NUMBER OF ARTERIAL PUNCTURES 1; OXYGEN DEVICE NASAL CANNULA; STAT NO; ULNAR PULSE PRESENT
[2016-09-07] MEDS: DOCUSATE SODIUM 100 MG CAP PO SCH ×3 (09:00→21:47)
[2016-09-07] MEDS: OLANZapine ODT 5 MG TAB PO SCH ×2 (09:36→21:46)
[2016-09-07] MEDS: VALPROIC ACID SYRUP 250 MG/5 ML UDC PO SCH ×2 (09:37→21:46)
[2016-09-07] MEDS: SODIUM CHLORIDE 0.9% FLUSH 10 ML FLUSH SCH ×2 (09:37→21:00)
[2016-09-07] MEDS: ACETAMINOPHEN 325 MG TAB PO PRN (09:48)
[2016-09-07 11:29] LABS: APTT (PATIENT) 54.3 SEC (24.3-30.1)
--- NOTE | 2016-09-07 12:58 | HHI.PR ---
Subjective Remarks no distress.pt doesn't exactly believe she has dvt/pe Objective Vitals heart reg lung cta abd s/nt ext left leg swelling. Vital Signs Date Time Temp Pulse Resp B/P Pulse Ox O2 Delivery O2 Flow Rate FiO2 09/07/16 12:00 81 09/07/16 12:00 98.4 81 24 130/62 92 09/07/16 10:00 84 09/07/16 08:00 98.3 85 25 152/77 95 09/07/16 08:00 82 09/07/16 07:24 96 Nasal Cannula 5.00 09/07/16 07:00 95 Nasal Cannula 4.00 09/07/16 06:00 83 09/07/16 04:00 98.5 73 28 144/76 96 09/07/16 04:00 73 09/07/16 03:00 69 18 140/75 94 09/07/16 02:00 73 27 130/62 88 09/07/16 02:00 73 09/07/16 01:00 72 32 117/71 96 09/07/16 00:00 74 09/07/16 00:00 98.0 74 24 110/59 93 09/06/16 22:00 83 09/06/16 20:00 75 09/06/16 20:00 98.2 75 29 152/73 99 09/06/16 19:55 93 Nasal Cannula 6.00 09/06/16 19:00 99 Nasal Cannula 4.00 09/06/16 18:00 78 09/06/16 17:01 78 145/70 89 09/06/16 17:00 78 91 09/06/16 16:32 93 Nasal Cannula 4.00 09/06/16 16:01 71 21 120/78 94 09/06/16 16:00 97.7 71 21 120/78 93 09/06/16 16:00 71 21 93 09/06/16 16:00 71 09/06/16 15:01 74 26 159/80 93 09/06/16 15:00 75 25 92 09/06/16 14:30 93 Nasal Cannula 6.00 09/06/16 14:00 73 09/06/16 14:00 73 29 125/77 91 09/06/16 13:02 74 28 112/64 95 09/06/16 13:00 74 32 93 09/06/16 09/06/16 09/07/16 15:00 23:00 07:00 Intake Total 1313 ml 1700 ml 1160 ml Output Total 550 ml 950 ml Balance 1313 ml 1150 ml 210 ml Intake Oral 250 ml 480 ml 240 ml IV Total 1063 ml 1220 ml 920 ml Output Urine Total 550 ml 950 ml # Voids 0 # Bowel Movements 0 0 0 Result Diagram: 09/07/16 0347 09/07/16 0347 A/P Problem List: (1) Pulmonary emboli Status: Acute Plan: Pt was admitted to psych unit for bipolar and psychosis. Developed left leg swelling then AMS resp distress found to have dvt left popliteal/tibial/peritoneal veins bilateral pulmonary emboli acute/ckd 3 hypokalemia cont heparin gtt wean oxygen..still on 4-5L I think she would be poor candidate for coumadin and so would consider eliquis or xarelto. d/c ivf replace and recheck potassium transfer out of icu to med/surg tele PT eval psychiatry following. (2) DVT (deep venous thrombosis) Status: Acute Plan: see above (3) Bipolar I, most recent episode manic, severe with psychotic behavior Status: Acute Plan: per psychiatry (4) HTN (hypertension) Status: Acute Plan: she was refusing bp meds in psych unit monitor and add back as needed. (5) Acute renal failure superimposed on stage 3 chronic kidney disease Status: Acute Plan: see above (6) Hypokalemia Status: Acute Plan: see above (7) COPD (chronic obstructive pulmonary disease) Status: Chronic Cirilo Ledbetter MD September 07, 2016 12:58
--- NOTE | 2016-09-07 13:14 | EC ---
Study Study Date:09/07/2016 STUDY CONCLUSIONS SUMMARY - Left ventricle: The cavity size was normal. Wall thickness was increased in a pattern of mild LVH. Systolic function was normal. The estimated ejection fraction was in the range of 55% to 60%. Wall motion was normal; there were no regional wall motion abnormalities. - Aortic valve: Valve area: 2.12cm^2 (Vmax). - Right ventricle: The cavity size was severely dilated. Wall thickness was normal. - Pulmonary arteries: Systolic pressure was severely increased. - Impressions: Right ventricular dysfunction. Impressions: Right ventricular dysfunction. If LV function is below 40, please consider prescribing an ACEI or ARB or document rationale for non-use. PROCEDURE DATA STUDY STATUS: Elective. Procedure: Transthoracic echocardiography. Image quality was good. Scanning was performed from the parasternal, apical, and subcostal acoustic windows. Study completion: The patient tolerated the procedure well. Transthoracic echocardiography. M-mode, complete 2D, complete spectral Doppler, and color Doppler. Height: Height: 64in. Weight: Weight: 231.5lb. Body mass index: BMI: 39.8kg/m^2. Body surface area: BSA: 2.08m^2. Patient status: Inpatient. CARDIAC ANATOMY LEFT VENTRICLE: The cavity size was normal. Wall thickness was increased in a pattern of mild LVH. Systolic function was normal. The estimated ejection fraction was in the range of 55% to 60%. Wall motion was normal; there were no regional wall motion abnormalities. AORTIC VALVE: Trileaflet; normal thickness leaflets. Doppler: Transvalvular velocity was within the normal range. There was no stenosis. No regurgitation. Valve area: 2.12cm^2 (Vmax). Indexed valve area: 1.02cm^2/m^2 (Vmax). Peak gradient: 10mm Hg (S). AORTA: Aortic root: The aortic root was normal in size. MITRAL VALVE: Structurally normal valve. Doppler: Transvalvular velocity was within the normal range. There was no evidence for stenosis. No regurgitation. Valve area by pressure half-time: 4.49cm^2. Indexed valve area by pressure half-time: 2.16cm^2/m^2. Peak gradient: 2mm Hg (D). LEFT ATRIUM: The atrium was normal in size. RIGHT VENTRICLE: The cavity size was severely dilated. Wall thickness was normal. PULMONIC VALVE: Doppler: Transvalvular velocity was within the normal range. There was no evidence for stenosis. No regurgitation. TRICUSPID VALVE: Structurally normal valve. Doppler: Transvalvular velocity was within the normal range. No regurgitation. Peak gradient: 59mm Hg (D). PULMONARY ARTERY: The main pulmonary artery was normal-sized. Systolic pressure was severely increased. RIGHT ATRIUM: The atrium was normal in size. PERICARDIUM: There was no pericardial effusion. SYSTEMIC VEINS: Inferior vena cava: The vessel was normal in size. Patient weight: 231.5lb _Ejection fraction:_ 65-75% _Fractional shortening:_ 32% up to 5Kg 5-11.5Kg 11.6-22.9Kg 23-45Kg 45-57Kg Aortic Root 7-13 <17 13-22 17-27 17-27 LA diam 6-13 <23 24-38 33-47 37-40 RVID 10-17 7-15 7-15 7-18 8-17 LVIDd 12-22 <32 24-38 33-47 37-40 LVPW 2-4 3-6 5-7 6-8 7-8 IVS 2-4 3-6 5-7 6-8 7-8 BASIC MEASUREMENTS ADULT NORMAL Left ventricle LV internal dimension, ED, chordal *29.2 mm 43-52 level, PLAX LV internal dimension, ES, chordal *22.6 mm 23-38 level, PLAX Fractional shortening, chordal level, *23 % >29 PLAX LV posterior wall thickness, ED 12.7 mm IVS/LVPW ratio, ED 1.01 <1.3 Ventricular septum Septal thickness, ED 12.8 mm Aortic valve Leaflet separation 15 mm 15-26 Left atrium Anterior-posterior dimension 37 mm Anterior-posterior dimension index 1.78 cm/m^2 <2.2 Right ventricle RV internal dimension, ED, PLAX *46.5 mm 19-38 BASIC MEASUREMENTS ADULT NORMAL Aortic valve Leaflet separation 15 mm 15-26 Aorta Root diameter, ED 26 mm 20-37 DOPPLER MEASUREMENTS ADULT NORMAL Aortic valve Peak velocity, S 161 cm/s Peak gradient, S 10 mm Hg Valve area, Vmax 2.12 cm^2 Valve area index, Vmax 1.02 cm^2/m^2 Mitral valve Peak E-wave velocity 71.1 cm/s Peak A-wave velocity 119 cm/s Pressure half-time 49 ms Peak gradient, D 2 mm Hg Peak E/A ratio 0.6 Valve area, pressure half-time 4.49 cm^2 Valve area index, pressure half-time 2.16 cm^2/m^2 Tricuspid valve Peak gradient, D 59 mm Hg Maximal inflow velocity 383 cm/s Systemic veins Estimated CVP 10 mm Hg Pulmonic valve Peak velocity, S 92 cm/s LEGEND: Mean values are shown as u=mean value. Asterisk (*) white values outside specified normal range. Prepared and signed by Jemima Siddiqui [id number]
--- NOTE | 2016-09-07 13:30 | MH ---
cc: TENNILLE WYNN M.D. DATE OF ADMISSION: 09/06/2016 HISTORY OF PRESENT ILLNESS: This 71-year-old white female was transferred from the psychiatric unit to the medical floor because of deep vein thrombosis and respiratory distress. She had seen by me in consultation yesterday, but I could not dictate the report as I was still not in the system. Please refer to my progress note dated 09/06/2016. Ms. Canales was admitted to psychiatric services because of an acute manic episode. On the day of admission, Dr. Ledbetter was consulted in regards to swelling of her right leg and he had ordered an ultrasound of the legs. Later on, the patient developed respiratory distress, and as such was transferred to the intensive medical care unit where I saw her in consultation. The ultrasound showed deep vein thrombosis. I discussed the case with Dr. Gramajo, the transport corps officer, in this regard. Yesterday she was not as hyperverbal but still somewhat delusional and seemed to be experiencing auditory hallucinations. Her speech was not pressured as had been the case all along during her admission on the psychiatric unit. She was restarted on the Depakene and Zyprexa Zydis. Today she was seen jointly with her close friend, Ms. Anais Isbell. Present in the session was a registered nurse. Ms. Canales was calmer and her speech was normal rate, i.e. no longer pressured. Her thoughts were still somewhat circumstantial and tangential though she was more receptive to the feedback. She seemed focused on discharge; however, when explained the need for continued hospital stay she accepted it. She also seemed somewhat better oriented, i.e. could tell the month and gave the date as "September 13". She mentioned she slept well and this was confirmed by the RN. I reviewed the treatment approach again with her and her friend. Ms. Isbell indicated that there is another neighbor who is very involved in her care and will be able to provide her supervision. She seemed very supportive. The case was reviewed with the nursing staff who indicated that the patient overall has been calmer. CT scan of the chest, according to the nursing staff, was positive for pulmonary embolism. DIAGNOSTIC IMPRESSION: Bipolar affective disorder manic phase with psychotic features. Her medical conditions are as listed in the initial history and physical. FORMULATION AND RECOMMENDATIONS: 1. Continue with the Depakene and the Zyprexa. 2. I will continue to provide individual psychotherapy and monitor her medication regimen. 3. Once medically stabilized, she can be transferred back to the psychiatric unit. MD RUSSELL Rodriguez/[place] /1:16 PM /1:24 PM
[2016-09-07 17:24] LABS: APTT (PATIENT) 47.9 SEC (24.3-30.1)
[2016-09-08] VITALS (8 sets, daily range): BP systolic 133–150; BP diastolic 62–87; PULSE 76–87; RESP 20–24; TEMP 97–99.4; O2SAT 91–97
[2016-09-08] MEDS: HEPARIN-D5W INJ 250 ML IV SCH (00:12)
[2016-09-08] MEDS: RESP: ALBUTEROL 2.5 MG/IPRATROPIUM 0.5 MG NEB (SCH) INH ×4 (03:00→21:32)
[2016-09-08 08:53] LABS: APTT (PATIENT) 42.5 SEC (24.3-30.1)
[2016-09-08] MEDS: DOCUSATE SODIUM 100 MG CAP PO SCH ×3 (09:00→22:05)
[2016-09-08 09:24] LABS: BICARBONATE 26.1 MEQ/L (21.0-32.0); POTASSIUM 3.9 MEQ/L (3.5-5.1)
[2016-09-08] MEDS: SODIUM CHLORIDE 0.9% FLUSH 10 ML FLUSH SCH ×2 (09:46→21:00)
[2016-09-08] MEDS: ACETAMINOPHEN 325 MG TAB PO PRN ×3 (09:46→22:09)
[2016-09-08] MEDS: OLANZapine ODT 5 MG TAB PO SCH ×2 (09:46→22:06)
[2016-09-08] MEDS: VALPROIC ACID SYRUP 250 MG/5 ML UDC PO SCH ×2 (09:47→22:04)
--- NOTE | 2016-09-08 13:15 | HHI.PR ---
Subjective Remarks Pt without any specific complaints. She is requesting to take her medications in her backyard tomorrow evening. Afebrile. Objective Vitals Vital Signs Date Time Temp Pulse Resp B/P Pulse Ox O2 Delivery O2 Flow Rate FiO2 09/08/16 12:00 99.0 86 20 134/68 92 09/08/16 10:01 92 Nasal Cannula 2.50 09/08/16 08:00 98.8 85 20 140/75 97 09/08/16 05:30 98.1 76 24 145/62 95 09/08/16 00:30 97.0 80 23 150/67 94 09/07/16 22:20 Nasal Cannula 5.00 09/07/16 21:40 97.9 85 24 156/69 94 09/07/16 20:30 94 Nasal Cannula 6.00 09/07/16 16:45 96.7 82 18 125/62 96 09/07/16 15:19 99.0 76 18 132/81 94 09/07/16 14:00 95 09/07/16 09/07/16 09/08/16 15:00 23:00 07:00 Intake Total 1269 ml 800 ml 850 ml Output Total 2400 ml 500 ml 300 ml Balance -1131 ml 300 ml 550 ml Intake Oral 300 ml 800 ml 850 ml IV Total 969 ml Output Urine Total 2400 ml 500 ml 300 ml # Bowel Movements 0 0 0 Result Diagram: 09/07/16 0347 09/08/16 0747 Other Results Laboratory Tests Test 09/06/16 09/06/16 09/07/16 09/07/16 17:25 22:20 00:58 03:47 White Blood Count 11.4 TH/MM3 11.8 TH/MM3 Red Blood Count 4.45 MIL/MM3 4.07 MIL/MM3 Hemoglobin 12.2 GM/DL 11.3 GM/DL Hematocrit 37.1 % 33.5 % Mean Corpuscular Volume 83.5 FL 82.3 FL Mean Corpuscular Hemoglobin 27.4 PG 27.7 PG Mean Corpuscular Hemoglobin 32.8 % 33.7 % Concent Red Cell Distribution Width 16.3 % 16.4 % Platelet Count 187 TH/MM3 197 TH/MM3 Mean Platelet Volume 8.7 FL 9.1 FL Prothrombin Time 12.3 SEC Prothromb Time International 1.1 RATIO Ratio Activated Partial 21.1 SEC 144.5 SEC 81.4 SEC Thromboplast Time Urine Color YELLOW Urine Turbidity CLOUDY Urine pH 5.5 Urine Specific [place] 1.016 Urine Protein 30 mg/dL Urine Glucose (UA) NEG mg/dL Urine Ketones NEG mg/dL Urine Occult Blood LARGE Urine Nitrite NEG Urine Bilirubin NEG Urine Urobilinogen LESS THAN 2.0 MG/DL Urine Leukocyte Esterase SMALL Urine RBC 3 /hpf Urine WBC 4 /hpf Urine Squamous Epithelial 8 /hpf Cells Urine Amorphous Sediment RARE Urine Bacteria MANY /hpf Urine Mucus FEW /lpf Microscopic Urinalysis Comment CATH-CULTURE IND Neutrophils (%) (Auto) 66.0 % Lymphocytes (%) (Auto) 22.0 % Monocytes (%) (Auto) 10.4 % Eosinophils (%) (Auto) 1.1 % Basophils (%) (Auto) 0.5 % Neutrophils # (Auto) 7.8 TH/MM3 Lymphocytes # (Auto) 2.6 TH/MM3 Monocytes # (Auto) 1.2 TH/MM3 Eosinophils # (Auto) 0.1 TH/MM3 Basophils # (Auto) 0.1 TH/MM3 CBC Comment DIFF FINAL Differential Comment Sodium Level 142 MEQ/L Potassium Level 2.9 MEQ/L Chloride Level 104 MEQ/L Carbon Dioxide Level 25.6 MEQ/L Anion Gap 12 MEQ/L Blood Urea Nitrogen 28 MG/DL Creatinine 1.23 MG/DL Estimat Glomerular Filtration 43 ML/MIN Rate Random Glucose 99 MG/DL Calcium Level 7.9 MG/DL Phosphorus Level 2.9 MG/DL Magnesium Level 2.1 MG/DL Total Bilirubin 0.4 MG/DL Aspartate Amino Transf 28 U/L (AST/SGOT) Alanine Aminotransferase 40 U/L (ALT/SGPT) Alkaline Phosphatase 67 U/L Total Protein 6.2 GM/DL Albumin 2.9 GM/DL Test 09/07/16 09/07/16 09/07/16 09/08/16 06:32 10:55 16:53 07:47 Blood Gas Puncture Site RT RADIAL Blood Gas Patient Temperature 98.6 Blood Gas HCO3 23 mmol/L Blood Gas Base Excess -1.3 mmol/L Blood Gas Oxygen Saturation 91 % Arterial Blood pH 7.42 Arterial Blood Partial 35 mmHg Pressure CO2 Arterial Blood Partial 70 mmHg Pressure O2 Arterial Blood Oxygen Content 14.4 Vol % Arterial Blood 1.6 % Carboxyhemoglobin Arterial Blood Methemoglobin 1.1 % Blood Gas Hemoglobin 11.3 G/DL Oxygen Delivery Device NASAL CANNULA Blood Gas Liter Flow 5 L/M Activated Partial 54.3 SEC 47.9 SEC 42.5 SEC Thromboplast Time Potassium Level 3.9 MEQ/L 3.9 MEQ/L Sodium Level 143 MEQ/L Chloride Level 108 MEQ/L Carbon Dioxide Level 26.1 MEQ/L Anion Gap 9 MEQ/L Blood Urea Nitrogen 13 MG/DL Creatinine 0.85 MG/DL Estimat Glomerular Filtration 66 ML/MIN Rate Random Glucose 105 MG/DL Calcium Level 8.3 MG/DL Imaging Last Impressions CT Angiography 09/07/16 0000 Signed Impressions: Service Date/Time: Wednesday, September 07, 2016 05:50 - CONCLUSION: 1. Examination positive for moderate size bilateral pulmonary emboli. Hamzah Varner MD Head CT 09/06/16 0000 Signed Impressions: Service Date/Time: Tuesday, September 06, 2016 04:37 - CONCLUSION: 1. No acute intracranial abnormalities. Cortical volume loss similar to November 2012. Hamzah Varner MD Objective Remarks General: NAD, Awake and alert, confused Chest: CTA Cardiac: Regular Abd: +BS. soft ND/NT Ext: LLE edema A/P Problem List: (1) Pulmonary emboli Status: Acute Plan: - Pt was admitted to psych unit for bipolar and psychosis. - She developed left leg swelling then AMS respiratory distress - LE US revealed DVT left popliteal/tibial/peritoneal veins - CTA chest revealed bilateral pulmonary emboli - Pit has acute on CKD, stage 3 and was started on Heparin gtt. - Pt would be poor candidate for Coumadin. - Stop Heparin gtt at 1500 today and initiate first dose of Eliquis at 1700 today. - Cont. to wean oxygen, currently on 2.5L - PT eval - Psychiatry following and would like pt, when medically stable, to be discharged back to psychiatric unit. (2) DVT (deep venous thrombosis) Status: Acute Plan: - See above (3) Bipolar I, most recent episode manic, severe with psychotic behavior Status: Acute Plan: - Per psychiatry (4) HTN (hypertension) Status: Acute Plan: - She was refusing bp meds in psych unit - Monitor and add back as needed. (5) Acute renal failure superimposed on stage 3 chronic kidney disease Status: Acute Plan: - Improving. (6) Hypokalemia Status: Acute Plan: - Improved with replacement. - Repeat labs in AM (7) COPD (chronic obstructive pulmonary disease) Status: Chronic Assessment and Plan Patient examined. Assessment and plan formulated with Ann-Marie Ferreira PA-C. I agree with the above. anticipate that pt will be ready for discharge back to Psychiatry in 1-2 days. Ann-Marie Ferreira September 08, 2016 13:15 Boubacar Weinberg DO September 09, 2016 02:05
[2016-09-08] MEDS: APIXABAN 5 MG TABLET PO SCH ×2 (17:06→22:05)
[2016-09-09] VITALS (10 sets, daily range): BP systolic 133–189; BP diastolic 64–109; PULSE 85–95; RESP 20; TEMP 96.5–99.2; O2SAT 90–94
[2016-09-09] MEDS: CHLORHEXIDINE GLUCONATE 2 % 1 PACK (2 CLOTHS) TOP SCH (03:12)
[2016-09-09] MEDS: RESP: ALBUTEROL 2.5 MG/IPRATROPIUM 0.5 MG NEB (SCH) INH ×4 (03:31→21:52)
[2016-09-09] MEDS: LOSARTAN 50 MG TAB PO SCH ×2 (06:05→08:59)
[2016-09-09] MEDS: DOCUSATE SODIUM 100 MG CAP PO SCH ×2 (08:58→20:25)
[2016-09-09] MEDS: SODIUM CHLORIDE 0.9% FLUSH 10 ML FLUSH SCH ×2 (08:58→20:27)
[2016-09-09] MEDS: APIXABAN 5 MG TABLET PO SCH ×2 (08:59→20:25)
[2016-09-09] MEDS: OLANZapine ODT 5 MG TAB PO SCH ×2 (09:00→20:26)
[2016-09-09] MEDS: ACETAMINOPHEN 325 MG TAB PO PRN (09:00)
[2016-09-09] MEDS: VALPROIC ACID SYRUP 250 MG/5 ML UDC PO SCH ×2 (09:00→20:26)
[2016-09-09] MEDS ORDERED: ENALAPRILAT 1.25 MG/ML VIAL IV PUSH PRN (11:00)
[2016-09-09] MEDS ORDERED: cloNIDine HCL 0.1 MG TAB PO PRN (11:00)
[2016-09-09 11:53] LABS: HEMATOCRIT 36.6 % (35.0-46.0); MEAN CELL VOLUME 85.1 FL (80.0-100.0); MEAN CORPUSCULAR HEMOGLOBIN 27.5 PG (27.0-34.0); MEAN CORPUSCULAR HGB CONC 32.3 % (32.0-36.0); PLATELET COUNT 209 TH/MM3 (150-450); RED BLOOD COUNT 4.31 MIL/MM3 (4.00-5.30); RED CELL DISTRIBUTION WIDTH 17.1 % (11.6-17.2)
[2016-09-09 11:58] LABS: HEMO FLAGS AUTO DIFF
[2016-09-09 12:08] LABS: ALKALINE PHOSPHATASE 79 U/L (45-117); ALT (GPT) 41 U/L (10-53); ANION GAP 10 MEQ/L (5-15); AST (GOT) 18 U/L (15-37); BICARBONATE 24.8 MEQ/L (21.0-32.0); BLOOD UREA NITROGEN 13 MG/DL (7-18); CHLORIDE 105 MEQ/L (98-107); GLOMERULAR FILTRATION RATE 56 ML/MIN (>89); POTASSIUM 3.9 MEQ/L (3.5-5.1); SODIUM (NA) 140 MEQ/L (136-145); TOTAL BILIRUBIN ADULT 0.5 MG/DL (0.2-1.0)
[2016-09-09 13:28] LABS: BANDS 1 % (0-6); EOSINOPHILS 1 % (0-4); MYELOCYTES 1 % (0-0); NEUTROPHIL # MANUAL DIFF 11.4 TH/MM3 (1.8-7.7); POLYS (SEG NEUTROPHILS) 86 % (16-70); WBC DIFF SAMPLE 100
[2016-09-09 13:29] LABS: SCAN/DIFF FINAL DIFF MANUAL
--- NOTE | 2016-09-09 14:48 | HHI.PR ---
Subjective Remarks Pt pleasantly confused. No specific complaints. Objective Vitals Vital Signs Date Time Temp Pulse Resp B/P Pulse Ox O2 Delivery O2 Flow Rate FiO2 09/09/16 13:00 94 2.00 09/09/16 12:50 96.5 90 20 172/109 94 09/09/16 10:05 94 Nasal Cannula 2.00 09/09/16 08:41 99.0 85 20 146/81 93 09/09/16 04:40 189/101 09/09/16 03:33 93 Nasal Cannula 2.00 09/09/16 00:51 97.1 86 20 156/97 93 09/09/16 00:00 93 2.00 09/08/16 20:22 99.4 86 20 133/87 91 09/08/16 16:10 91 Nasal Cannula 2.50 09/08/16 16:00 98.1 87 20 134/79 91 09/08/16 09/08/16 09/09/16 15:00 23:00 07:00 Intake Total 720 ml Output Total 1125 ml 600 ml Balance -405 ml -600 ml Intake Oral 720 ml Output Urine Total 1125 ml 600 ml # Bowel Movements 0 Result Diagram: 09/09/16 1055 09/09/16 1055 Other Results Laboratory Tests Test 09/07/16 09/08/16 09/09/16 16:53 07:47 10:55 Activated Partial 47.9 SEC 42.5 SEC Thromboplast Time Potassium Level 3.9 MEQ/L 3.9 MEQ/L 3.9 MEQ/L Sodium Level 143 MEQ/L 140 MEQ/L Chloride Level 108 MEQ/L 105 MEQ/L Carbon Dioxide Level 26.1 MEQ/L 24.8 MEQ/L Anion Gap 9 MEQ/L 10 MEQ/L Blood Urea Nitrogen 13 MG/DL 13 MG/DL Creatinine 0.85 MG/DL 0.97 MG/DL Estimat Glomerular Filtration 66 ML/MIN 56 ML/MIN Rate Random Glucose 105 MG/DL 129 MG/DL Calcium Level 8.3 MG/DL 9.0 MG/DL White Blood Count 13.0 TH/MM3 Red Blood Count 4.31 MIL/MM3 Hemoglobin 11.8 GM/DL Hematocrit 36.6 % Mean Corpuscular Volume 85.1 FL Mean Corpuscular Hemoglobin 27.5 PG Mean Corpuscular Hemoglobin 32.3 % Concent Red Cell Distribution Width 17.1 % Platelet Count 209 TH/MM3 Mean Platelet Volume 9.0 FL Neutrophils (%) (Auto) % Lymphocytes (%) (Auto) % Monocytes (%) (Auto) % Eosinophils (%) (Auto) % Basophils (%) (Auto) % Neutrophils # (Auto) TH/MM3 Lymphocytes # (Auto) TH/MM3 Monocytes # (Auto) TH/MM3 Eosinophils # (Auto) TH/MM3 Basophils # (Auto) TH/MM3 CBC Comment AUTO DIFF Differential Total Cells 100 Counted Neutrophils % (Manual) 86 % Band Neutrophils % 1 % Lymphocytes % 10 % Monocytes % 1 % Eosinophils % 1 % Neutrophils # (Manual) 11.4 TH/MM3 Myelocytes 1 % Differential Comment FINAL DIFF MANUAL Total Bilirubin 0.5 MG/DL Aspartate Amino Transf 18 U/L (AST/SGOT) Alanine Aminotransferase 41 U/L (ALT/SGPT) Alkaline Phosphatase 79 U/L Total Protein 6.9 GM/DL Albumin 2.8 GM/DL Valproic Acid (Depakene) Level 49 MCG/ML Imaging Last Impressions CT Angiography 09/07/16 0000 Signed Impressions: Service Date/Time: Wednesday, September 07, 2016 05:50 - CONCLUSION: 1. Examination positive for moderate size bilateral pulmonary emboli. Hamzah Varner MD Head CT 09/06/16 0000 Signed Impressions: Service Date/Time: Tuesday, September 06, 2016 04:37 - CONCLUSION: 1. No acute intracranial abnormalities. Cortical volume loss similar to November 2012. Hamzah Varner MD Objective Remarks General: NAD, Awake and alert, confused Chest: CTA Cardiac: Regular Abd: +BS. soft ND/NT Jennings cath in place Ext: LLE edema A/P Problem List: (1) Pulmonary emboli Status: Acute Plan: - Pt was admitted to psych unit for bipolar and psychosis. - She developed left leg swelling then AMS respiratory distress - LE US revealed DVT left popliteal/tibial/peritoneal veins - CTA chest revealed bilateral pulmonary emboli - Pit has acute on CKD, stage 3 and was started on Heparin gtt. - Pt would be poor candidate for Coumadin. - Pt tolerating Eliquis - Cont. to wean oxygen, currently on 2L - Pt noted to have Lactobacillus growing from her urine, but >100,000 CFU/mL noted. She has not had any fevers. Pts WBC count is mildly elevated. We will give Cipro 250mg po BID. - Remove Jennings - PT eval - Psychiatry following and would like pt, when medically stable, to be discharged back to psychiatric unit. (2) DVT (deep venous thrombosis) Status: Acute Plan: - See above (3) Bipolar I, most recent episode manic, severe with psychotic behavior Status: Acute Plan: - Per psychiatry (4) HTN (hypertension) Status: Acute Plan: - She was refusing bp meds in psych unit - BP is rising back up - Cozaar 100mg po daily resumed on 09/09 - We will add Procardia XL 60mg po daily as well, first dose now. - Clonidine and Vasotec PRN - Monitor and add back as needed. (5) Acute renal failure superimposed on stage 3 chronic kidney disease Status: Acute Plan: - Improving. (6) Hypokalemia Status: Acute Plan: - Improved with replacement. - Repeat labs in AM (7) COPD (chronic obstructive pulmonary disease) Status: Chronic Assessment and Plan Patient examined. Assessment and plan formulated with Ann-Marie Ferreira PA-C. I agree with the above. Ann-Marie Ferreira September 09, 2016 14:48 Boubacar Weinberg DO September 12, 2016 22:54
[2016-09-09] MEDS: NIFEdipine 60 MG SUSTAINED RELEASE TAB PO SCH (17:03)
[2016-09-09] MEDS: CIPROFLOXACIN 250 MG TAB PO SCH (21:36)
[2016-09-10] VITALS (7 sets, daily range): BP systolic 119–166; BP diastolic 20–79; PULSE 81–89; RESP 18–22; TEMP 96–99.1; O2SAT 91–95
[2016-09-10] MEDS: RESP: ALBUTEROL 2.5 MG/IPRATROPIUM 0.5 MG NEB (SCH) INH (03:26)
[2016-09-10] MEDS: CHLORHEXIDINE GLUCONATE 2 % 1 PACK (2 CLOTHS) TOP SCH (03:59)
[2016-09-10 07:21] LABS: AUTOMATED NEUTROPHIL # 11.5 TH/MM3 (1.8-7.7); BASOPHIL # 0.1 TH/MM3 (0-0.2); BASOPHIL % 0.7 % (0.0-2.0); EOSINOPHIL # 0.3 TH/MM3 (0-0.4); EOSINOPHIL % 1.7 % (0.0-4.0); HEMATOCRIT 33.8 % (35.0-46.0); HEMO FLAGS DIFF FINAL; LYMPH % 14.9 % (9.0-44.0); LYMPHOCYTE # 2.3 TH/MM3 (1.0-4.8); MEAN CELL VOLUME 84.1 FL (80.0-100.0); MEAN CORPUSCULAR HEMOGLOBIN 27.2 PG (27.0-34.0); MEAN CORPUSCULAR HGB CONC 32.4 % (32.0-36.0); MONO % 6.9 % (0.0-8.0); NEUT % 75.8 % (16.0-70.0); PLATELET COUNT 246 TH/MM3 (150-450); RED BLOOD COUNT 4.02 MIL/MM3 (4.00-5.30); RED CELL DISTRIBUTION WIDTH 16.5 % (11.6-17.2); WHITE BLOOD COUNT 15.1 TH/MM3 (4.0-11.0)
[2016-09-10] MEDS: LOSARTAN 50 MG TAB PO SCH (08:03)
[2016-09-10] MEDS: SODIUM CHLORIDE 0.9% FLUSH 10 ML FLUSH SCH ×2 (08:03→20:59)
[2016-09-10] MEDS: CIPROFLOXACIN 250 MG TAB PO SCH ×2 (08:03→20:59)
[2016-09-10] MEDS: APIXABAN 5 MG TABLET PO SCH ×2 (08:03→20:58)
[2016-09-10] MEDS: NIFEdipine 60 MG SUSTAINED RELEASE TAB PO SCH (08:03)
[2016-09-10] MEDS: VALPROIC ACID SYRUP 250 MG/5 ML UDC PO SCH ×2 (08:03→20:57)
[2016-09-10] MEDS: OLANZapine ODT 5 MG TAB PO SCH ×2 (08:03→20:58)
[2016-09-10] MEDS: DOCUSATE SODIUM 100 MG CAP PO SCH ×2 (08:06→21:00)
--- NOTE | 2016-09-10 13:17 | HHI.PR ---
Subjective Remarks Pt pleasantly confused. Nursing staff reports that the pt thought she had a nose bleed today but there was no bleeding. She otherwise has no complaints. Objective Vitals Vital Signs Date Time Temp Pulse Resp B/P Pulse Ox O2 Delivery O2 Flow Rate FiO2 09/10/16 09:19 95 Nasal Cannula 2.00 09/10/16 08:09 91 Nasal Cannula 2.00 09/10/16 08:04 99.1 82 22 146/20 91 09/10/16 04:28 97.1 89 18 119/60 93 09/10/16 03:28 91 Nasal Cannula 2.00 09/10/16 01:22 94 2.00 09/09/16 23:58 98.1 95 20 133/64 90 09/09/16 21:52 92 Nasal Cannula 2.00 09/09/16 20:17 99.2 90 20 161/90 91 09/09/16 13:30 154/98 09/09/16 09/09/16 09/10/16 15:00 23:00 07:00 Intake Total 875 ml 120 ml Output Total 925 ml Balance 875 ml -925 ml 120 ml Intake Oral 875 ml 120 ml Output Urine Total 925 ml # Voids 2 # Bowel Movements 1 Result Diagram: 09/10/16 0645 09/09/16 1055 Other Results Laboratory Tests Test 09/09/16 09/10/16 10:55 06:45 White Blood Count 13.0 TH/MM3 15.1 TH/MM3 Red Blood Count 4.31 MIL/MM3 4.02 MIL/MM3 Hemoglobin 11.8 GM/DL 10.9 GM/DL Hematocrit 36.6 % 33.8 % Mean Corpuscular Volume 85.1 FL 84.1 FL Mean Corpuscular Hemoglobin 27.5 PG 27.2 PG Mean Corpuscular Hemoglobin 32.3 % 32.4 % Concent Red Cell Distribution Width 17.1 % 16.5 % Platelet Count 209 TH/MM3 246 TH/MM3 Mean Platelet Volume 9.0 FL 8.9 FL Neutrophils (%) (Auto) % 75.8 % Lymphocytes (%) (Auto) % 14.9 % Monocytes (%) (Auto) % 6.9 % Eosinophils (%) (Auto) % 1.7 % Basophils (%) (Auto) % 0.7 % Neutrophils # (Auto) TH/MM3 11.5 TH/MM3 Lymphocytes # (Auto) TH/MM3 2.3 TH/MM3 Monocytes # (Auto) TH/MM3 1.0 TH/MM3 Eosinophils # (Auto) TH/MM3 0.3 TH/MM3 Basophils # (Auto) TH/MM3 0.1 TH/MM3 CBC Comment AUTO DIFF DIFF FINAL Differential Total Cells 100 Counted Neutrophils % (Manual) 86 % Band Neutrophils % 1 % Lymphocytes % 10 % Monocytes % 1 % Eosinophils % 1 % Neutrophils # (Manual) 11.4 TH/MM3 Myelocytes 1 % Differential Comment FINAL DIFF MANUAL Sodium Level 140 MEQ/L Potassium Level 3.9 MEQ/L Chloride Level 105 MEQ/L Carbon Dioxide Level 24.8 MEQ/L Anion Gap 10 MEQ/L Blood Urea Nitrogen 13 MG/DL Creatinine 0.97 MG/DL Estimat Glomerular Filtration 56 ML/MIN Rate Random Glucose 129 MG/DL Calcium Level 9.0 MG/DL Total Bilirubin 0.5 MG/DL Aspartate Amino Transf 18 U/L (AST/SGOT) Alanine Aminotransferase 41 U/L (ALT/SGPT) Alkaline Phosphatase 79 U/L Total Protein 6.9 GM/DL Albumin 2.8 GM/DL Valproic Acid (Depakene) Level 49 MCG/ML Imaging Last Impressions CT Angiography 09/07/16 0000 Signed Impressions: Service Date/Time: Wednesday, September 07, 2016 05:50 - CONCLUSION: 1. Examination positive for moderate size bilateral pulmonary emboli. Hamzah Varner MD Head CT 09/06/16 0000 Signed Impressions: Service Date/Time: Tuesday, September 06, 2016 04:37 - CONCLUSION: 1. No acute intracranial abnormalities. Cortical volume loss similar to November 2012. Hamzah Varner MD Objective Remarks General: NAD, Awake and alert, confused Chest: CTA Cardiac: Regular Abd: +BS. soft ND/NT Jennings cath in place Ext: LLE edema A/P Problem List: (1) Pulmonary emboli Status: Acute Plan: - Pt was admitted to psych unit for bipolar and psychosis. - She developed left leg swelling then AMS respiratory distress - LE US revealed DVT left popliteal/tibial/peritoneal veins - CTA chest revealed bilateral pulmonary emboli - Pit has acute on CKD, stage 3 and was started on Heparin gtt. - Pt would be poor candidate for Coumadin. - Pt tolerating Eliquis - Cont. to try to wean oxygen, currently on 2L - Pt noted to have Lactobacillus growing from her urine, but >100,000 CFU/mL noted. She has not had any fevers. Pts WBC count is mildly elevated. We will give Cipro 250mg po BID. - Jennings removed on 09/09 and urinating without difficulty - WBC count increased, today. No fever. - PT eval - Psychiatry following and would like pt, when medically stable, to be discharged back to psychiatric unit. (2) DVT (deep venous thrombosis) Status: Acute Plan: - See above (3) Bipolar I, most recent episode manic, severe with psychotic behavior Status: Acute Plan: - Per psychiatry (4) HTN (hypertension) Status: Acute Plan: - She was refusing bp meds in psych unit - BP was rising back up - Cozaar 100mg po daily resumed on 09/09 - Procardia XL 60mg po daily was added back on 09/09 and BP is better today - Clonidine and Vasotec PRN - Monitor and add back as needed. (5) Acute renal failure superimposed on stage 3 chronic kidney disease Status: Acute Plan: - Improving. (6) Hypokalemia Status: Acute Plan: - Improved with replacement. - Repeat labs in AM (7) COPD (chronic obstructive pulmonary disease) Status: Chronic Assessment and Plan Patient examined. Assessment and plan formulated with Ann-Marie Ferreira PA-C. I agree with the above. Ann-Marie Ferreira September 10, 2016 13:17 Boubacar Weinberg DO September 12, 2016 22:54
[2016-09-10] MEDS: ACETAMINOPHEN 325 MG TAB PO PRN (16:46)
[2016-09-11] VITALS (7 sets, daily range): BP systolic 115–151; BP diastolic 63–79; PULSE 76–86; RESP 18–20; TEMP 96.9–98.4; O2SAT 91–95
[2016-09-11] MEDS: CHLORHEXIDINE GLUCONATE 2 % 1 PACK (2 CLOTHS) TOP SCH (03:09)
[2016-09-11] MEDS: DOCUSATE SODIUM 100 MG CAP PO SCH ×2 (09:00→21:00)
[2016-09-11] MEDS: LOSARTAN 50 MG TAB PO SCH (09:34)
[2016-09-11] MEDS: NIFEdipine 60 MG SUSTAINED RELEASE TAB PO SCH (09:34)
[2016-09-11] MEDS: CIPROFLOXACIN 250 MG TAB PO SCH ×2 (09:34→21:59)
[2016-09-11] MEDS: OLANZapine ODT 5 MG TAB PO SCH ×2 (09:35→21:59)
[2016-09-11] MEDS: APIXABAN 5 MG TABLET PO SCH ×2 (09:36→22:00)
[2016-09-11] MEDS: VALPROIC ACID SYRUP 250 MG/5 ML UDC PO SCH ×2 (09:38→21:58)
[2016-09-11] MEDS: SODIUM CHLORIDE 0.9% FLUSH 10 ML FLUSH SCH ×2 (09:38→21:00)
[2016-09-11 09:43] LABS: AUTOMATED NEUTROPHIL # 9.2 TH/MM3 (1.8-7.7); BASOPHIL # 0.1 TH/MM3 (0-0.2); BASOPHIL % 0.9 % (0.0-2.0); EOSINOPHIL # 0.5 TH/MM3 (0-0.4); EOSINOPHIL % 3.8 % (0.0-4.0); HEMATOCRIT 34.8 % (35.0-46.0); HEMO FLAGS DIFF FINAL; LYMPH % 14.9 % (9.0-44.0); LYMPHOCYTE # 1.8 TH/MM3 (1.0-4.8); MEAN CELL VOLUME 84.1 FL (80.0-100.0); MEAN CORPUSCULAR HEMOGLOBIN 28.1 PG (27.0-34.0); MEAN CORPUSCULAR HGB CONC 33.4 % (32.0-36.0); NEUT % 74.4 % (16.0-70.0); PLATELET COUNT 304 TH/MM3 (150-450); RED BLOOD COUNT 4.14 MIL/MM3 (4.00-5.30); RED CELL DISTRIBUTION WIDTH 16.3 % (11.6-17.2); WHITE BLOOD COUNT 12.3 TH/MM3 (4.0-11.0)
[2016-09-11] MEDS: ACETAMINOPHEN 325 MG TAB PO PRN (13:41)
[2016-09-11] MEDS ORDERED: OLANZ5 PO (13:56)
[2016-09-11] MEDS ORDERED: CIPR250T52 PO (13:56)
[2016-09-11] MEDS ORDERED: Valproic Acid Liq PO ×2 (13:56)
[2016-09-11] MEDS ORDERED: APIX5TAB PO (13:56)
--- NOTE | 2016-09-11 13:58 | HHI.DCPOC ---
Discharge Care Plan Diagnosis: (1) Bipolar I, most recent episode manic, severe with psychotic behavior (2) Pulmonary emboli (3) DVT (deep venous thrombosis) (4) COPD (chronic obstructive pulmonary disease) (5) Acute renal failure superimposed on stage 3 chronic kidney disease (6) HTN (hypertension) Goals to Promote Your Health * To prevent worsening of your condition and complications * To maintain your health at the optimal level Directions to Meet Your Goals Take your medications as prescribed Follow your dietary instruction Follow activity as directed Keep your appointments as scheduled Take your immunizations and boosters as scheduled If your symptoms worsen call your PCP, if no PCP go to Urgent Care Center or Emergency Room Smoking is Dangerous to Your Health. Avoid second hand smoke Call the 24-hour hour crisis hotline for domestic abuse at Ann-Marie Ferreira September 11, 2016 13:58 Boubacar Weinberg DO September 13, 2016 11:02
--- NOTE | 2016-09-11 14:19 | HHI.DS ---
Discharge Summary Admission Date September 06, 2016 at 03:20 Discharge Date: September 11, 2016 Admitting Diagnosis (1) Pulmonary emboli Diagnosis: Principal (2) DVT (deep venous thrombosis) Diagnosis: Principal (3) Bipolar I, most recent episode manic, severe with psychotic behavior Diagnosis: Secondary (4) HTN (hypertension) Diagnosis: Secondary (5) Acute renal failure superimposed on stage 3 chronic kidney disease Diagnosis: Secondary (6) Hypokalemia Diagnosis: Secondary (7) COPD (chronic obstructive pulmonary disease) Diagnosis: Secondary Consultants Dr. Kortney Whitman - Psychiatry Brief History Ms. Canales is a 71 y/o female who was brought to emergency department on via [facility] as a Norris Act which was initiated by patient's power of estate attorney. The patient had been walking in her neighborhood barefoot and in her nightgown. On the admission she was extremely hyperverbal with a displaced pressured speech and was felt to be manic and was admitted to psychiatry. CBC/BMP: 09/11/16 0901 09/09/16 1055 Significant Findings Laboratory Tests Test 09/09/16 09/10/16 09/11/16 10:55 06:45 09:01 White Blood Count 13.0 TH/MM3 15.1 TH/MM3 12.3 TH/MM3 (4.0-11.0) (4.0-11.0) (4.0-11.0) Neutrophils % (Manual) 86 % (16-70) Neutrophils # (Manual) 11.4 TH/MM3 (1.8-7.7) Myelocytes 1 % (0-0) Estimat Glomerular Filtration 56 ML/MIN (>89) Rate Random Glucose 129 MG/DL (74-106) Albumin 2.8 GM/DL (3.4-5.0) Valproic Acid (Depakene) Level 49 MCG/ML (50-100) Hemoglobin 10.9 GM/DL (11.6-15.3) Hematocrit 33.8 % 34.8 % (35.0-46.0) (35.0-46.0) Neutrophils (%) (Auto) 75.8 % 74.4 % (16.0-70.0) (16.0-70.0) Neutrophils # (Auto) 11.5 TH/MM3 9.2 TH/MM3 (1.8-7.7) (1.8-7.7) Monocytes # (Auto) 1.0 TH/MM3 (0-0.9) Eosinophils # (Auto) 0.5 TH/MM3 (0-0.4) Imaging Last Impressions CT Angiography 09/07/16 0000 Signed Impressions: Service Date/Time: Wednesday, September 07, 2016 05:50 - CONCLUSION: 1. Examination positive for moderate size bilateral pulmonary emboli. Hamzah Varner MD Head CT 09/06/16 0000 Signed Impressions: Service Date/Time: Tuesday, September 06, 2016 04:37 - CONCLUSION: 1. No acute intracranial abnormalities. Cortical volume loss similar to November 2012. Hamzah Varner MD PE at Discharge General: NAD, Awake and alert, confused Chest: CTA Cardiac: Regular Abd: +BS. soft ND/NT Jennings cath in place Ext: LLE edema Hospital Course Pt was admitted to psych unit for bipolar and psychosis. She developed left leg swelling then AMS respiratory distress and was transferred from the Psych unit to the ICU and was admitted by the intensivists on 09/06/16. LE US revealed DVT left popliteal/tibial/peritoneal veins. CTA chest revealed bilateral pulmonary emboli. Pt has acute on CKD, stage 3 and was started on Heparin gtt. Pt would be poor candidate for Coumadin so she was started on Eliquis. Pt has been tolerating Eliquis well. She was able to be weaned off supplemental O2. 2 D Echo (09/06/16) --> mild LVH. EF 55% to 60%. Right ventricle severely dilated. Pulmonary arteries systolic pressure was severely increased, 59mmHg. Pt was noted to have Lactobacillus growing from her urine, but >100,000 CFU/mL noted. She has not had any fevers. Pts WBC count is mildly elevated. Pt was started on Cipro 250mg po BID on 09/09. Jennings removed on 09/09 and urinating without difficulty. WBC count had increased, but there was no fever. Her WBC count did improve on the day of discharge to 12. Pt will complete another 3 days of Cipro 250mg po BID. She was refusing bp meds in psych unit and BP was rising. Her Cozaar 100mg po daily resumed on 09/09 and Procardia XL 60mg po daily was added back on 09/09 and BP improved. Clonidine 0.1mg po Q6H PRN will be continued at rehab. Case was discussed with Dr. Whitman from psychiatry on the day of discharge and from his standpoint he felt that she did not need to return to the psychiatric unit. Her naina and delusions were improving. He did feel that there is some underlying dementia likely playing some part in her symptoms. Pt will be continued on the Depakene 250mg po daily and 500mg HS and her Zyprexa 5mg Po BID. Pt will need followup with [facility], Dr. Laughlin, 1 week after discharge from SNF. Pt will need followup with her PCP, Dr. Thorpe, 1 week after discharge from SNF. Pt Condition on Discharge: Stable Discharge Disposition: Discharge to SNF Discharge Instructions DIET: Follow Instructions for: Heart Healthy Diet Activities you can perform: Regular-No Restrictions Follow up Referrals: PCP Follow-up - [address] Thorpe Psychiatry Adult - 2 Weeks with [facility] New Medications: Apixaban (Eliquis) 5 Mg Tab 5 MG PO BID PE #62 TAB Ciprofloxacin (Cipro) 250 Mg Tab 250 MG PO Q12HR UTI #6 TAB Olanzapine Odt (Zyprexa Zydis) 5 Mg Tab 5 MG PO BID Bipolar #62 TAB ([Valproic Acid Liq]) 250 MG/5 ML SYRP 250 MG PO DAILY Bipolar disorder #31 ML ([Valproic Acid Liq]) 250 MG/5 ML SYRP 500 MG PO HS Bipolar disorder #31 ML Continued Medications: Losartan (Losartan) 100 Mg Tab 100 MG PO DAILY Blood Pressure Management #30 Ref 0 TAB Nifedipine ER 24 HR (Nifedipine ER 24 HR) 60 Mg Tab 60 MG PO DAILY #30 Ref 0 TAB Discontinued Medications: Atenolol (Atenolol) 100 Mg Tab 100 MG PO DAILY Blood Pressure Management #30 Ref 0 TAB Quetiapine ER (Quetiapine ER) 150 Mg Tab 150 MG PO HS Ref 0 TAB Sertraline (Sertraline) 25 Mg Tab 175 PO DAILY #30 Ref 0 TAB Additional Information Patient examined. Assessment and plan formulated with Ann-Marie Ferreira PA-C. I agree with the above. Discharge was held for several days d/t placement. Case mgmt was NOT able to arrange discharge to SNFs that POA had selected. On the day of discharge, POA requested that discharge arrange be changed to home with [facility] and home PT which I have arranged. Ann-Marie Ferreira September 11, 2016 14:19 Boubacar Weinberg DO September 13, 2016 15:13
[2016-09-12] VITALS (7 sets, daily range): BP systolic 123–149; BP diastolic 64–80; PULSE 67–80; RESP 18–22; TEMP 96.6–98.4; O2SAT 90–96
[2016-09-12] MEDS: ACETAMINOPHEN 325 MG TAB PO PRN ×3 (01:09→21:04)
[2016-09-12] MEDS: CHLORHEXIDINE GLUCONATE 2 % 1 PACK (2 CLOTHS) TOP SCH (04:00)
[2016-09-12 08:11] LABS: HEMATOCRIT 35.5 % (35.0-46.0); MEAN CELL VOLUME 83.2 FL (80.0-100.0); MEAN CORPUSCULAR HEMOGLOBIN 28.4 PG (27.0-34.0); MEAN CORPUSCULAR HGB CONC 34.1 % (32.0-36.0); PLATELET COUNT 328 TH/MM3 (150-450); RED BLOOD COUNT 4.26 MIL/MM3 (4.00-5.30); RED CELL DISTRIBUTION WIDTH 16.5 % (11.6-17.2); REVIEW FLAG FINAL
[2016-09-12] MEDS: DOCUSATE SODIUM 100 MG CAP PO SCH ×2 (09:41→21:00)
[2016-09-12] MEDS: VALPROIC ACID SYRUP 250 MG/5 ML UDC PO SCH ×2 (09:44→21:03)
[2016-09-12] MEDS: LOSARTAN 50 MG TAB PO SCH (09:45)
[2016-09-12] MEDS: NIFEdipine 60 MG SUSTAINED RELEASE TAB PO SCH (09:45)
[2016-09-12] MEDS: CIPROFLOXACIN 250 MG TAB PO SCH ×2 (09:45→21:04)
[2016-09-12] MEDS: APIXABAN 5 MG TABLET PO SCH ×2 (09:45→21:00)
[2016-09-12] MEDS: SODIUM CHLORIDE 0.9% FLUSH 10 ML FLUSH SCH ×2 (09:50→21:00)
[2016-09-12] MEDS: OLANZapine ODT 5 MG TAB PO SCH ×2 (10:26→21:03)
--- NOTE | 2016-09-12 14:22 | HHI.FF ---
Face to Face Verification Diagnosis: (1) Bipolar I, most recent episode manic, severe with psychotic behavior (2) Pulmonary emboli (3) DVT (deep venous thrombosis) (4) COPD (chronic obstructive pulmonary disease) (5) HTN (hypertension) Physical Therapy Order: Evaluate and Treat, Improve ambulation, Strength and gait training Home Health Nursing Order: Medical education Signs/symptoms of disease process Medication education-adverse effect Nursing assessment with vital signs I have seen patient Niurka Canales on 09/12/16. My clinical findings support the need for the requested home health care services because: Ltd mobility - disease progression Patient has SOB Deconditioned w/ increased weakness Med compliance is questionable Limited ability to care for self Need for psychosocial assistance Impaired cognition/judgement I certify that my clinical findings support that this patient is homebound because: Impaired cognitive ability/safety Unsafe to leave home unassisted Need for psychosocial assistance Unable to use public transportation Boubacar Weinberg DO September 12, 2016 14:22
--- NOTE | 2016-09-12 14:45 | HHI.PR ---
Subjective Remarks No new complaints. Objective Vitals Vital Signs Date Time Temp Pulse Resp B/P Pulse Ox O2 Delivery O2 Flow Rate FiO2 09/12/16 12:00 97.8 72 20 142/80 93 09/12/16 11:51 94 Nasal Cannula 2.00 09/12/16 09:40 Room Air 09/12/16 08:00 96.6 75 20 138/66 94 09/12/16 04:30 97.7 67 22 123/64 96 09/12/16 00:00 98.4 72 20 125/67 95 09/11/16 20:40 97.4 77 18 138/63 94 09/11/16 16:00 98.4 80 20 151/69 92 09/11/16 15:44 95 Nasal Cannula 2.00 09/11/16 09/11/16 09/12/16 15:00 23:00 07:00 Intake Total 600 ml 900 ml Output Total 901 ml Balance -901 ml 600 ml 900 ml Intake Oral 600 ml 900 ml Output Urine Total 900 ml Stool Total 1 ml # Voids 1 3 # Bowel Movements 0 0 Result Diagram: 09/12/16 0749 09/09/16 1055 Other Results Laboratory Tests Test 09/11/16 09/12/16 09:01 07:49 White Blood Count 12.3 TH/MM3 11.0 TH/MM3 Red Blood Count 4.14 MIL/MM3 4.26 MIL/MM3 Hemoglobin 11.6 GM/DL 12.1 GM/DL Hematocrit 34.8 % 35.5 % Mean Corpuscular Volume 84.1 FL 83.2 FL Mean Corpuscular Hemoglobin 28.1 PG 28.4 PG Mean Corpuscular Hemoglobin 33.4 % 34.1 % Concent Red Cell Distribution Width 16.3 % 16.5 % Platelet Count 304 TH/MM3 328 TH/MM3 Mean Platelet Volume 8.3 FL 7.9 FL Neutrophils (%) (Auto) 74.4 % Lymphocytes (%) (Auto) 14.9 % Monocytes (%) (Auto) 6.0 % Eosinophils (%) (Auto) 3.8 % Basophils (%) (Auto) 0.9 % Neutrophils # (Auto) 9.2 TH/MM3 Lymphocytes # (Auto) 1.8 TH/MM3 Monocytes # (Auto) 0.7 TH/MM3 Eosinophils # (Auto) 0.5 TH/MM3 Basophils # (Auto) 0.1 TH/MM3 CBC Comment DIFF FINAL Differential Comment Imaging Last Impressions CT Angiography 09/07/16 0000 Signed Impressions: Service Date/Time: Wednesday, September 07, 2016 05:50 - CONCLUSION: 1. Examination positive for moderate size bilateral pulmonary emboli. Hamzah Varner MD Head CT 09/06/16 0000 Signed Impressions: Service Date/Time: Tuesday, September 06, 2016 04:37 - CONCLUSION: 1. No acute intracranial abnormalities. Cortical volume loss similar to November 2012. Hamzah Varner MD Objective Remarks General: NAD, Awake and alert, confused Chest: CTA Cardiac: Regular Abd: +BS. soft ND/NT Jennings cath in place Ext: LLE edema A/P Problem List: (1) Pulmonary emboli Status: Acute Plan: - Pt was admitted to psych unit for bipolar and psychosis. - She developed left leg swelling then AMS respiratory distress - LE US revealed DVT left popliteal/tibial/peritoneal veins - CTA chest revealed bilateral pulmonary emboli - Pit has acute on CKD, stage 3 and was started on Heparin gtt. - Pt would be poor candidate for Coumadin. - Pt tolerating Eliquis - Cont. to try to wean oxygen, currently on 2L - Pt noted to have Lactobacillus growing from her urine, but >100,000 CFU/mL noted. She has not had any fevers. Pts WBC count is mildly elevated. We will give Cipro 250mg po BID. - Jennings removed on 09/09 and urinating without difficulty - WBC count improved. - Pt had been planned for discharge but there has been issues with placement at SNF and POA is uncertain if they want her to go to SNF vs. C/PT - PT eval today - Await POAs decision regarding placement and hopefully discharge later today. (2) DVT (deep venous thrombosis) Status: Acute Plan: - See above (3) Bipolar I, most recent episode manic, severe with psychotic behavior Status: Acute Plan: - Per psychiatry (4) HTN (hypertension) Status: Acute Plan: - She was refusing bp meds in psych unit - BP was rising back up - Cozaar 100mg po daily resumed on 09/09 - Procardia XL 60mg po daily was added back on 09/09 and BP is better today - Clonidine and Vasotec PRN - Monitor and add back as needed. (5) Acute renal failure superimposed on stage 3 chronic kidney disease Status: Acute Plan: - Improving. (6) Hypokalemia Status: Acute Plan: - Improved with replacement. - Repeat labs in AM (7) COPD (chronic obstructive pulmonary disease) Status: Chronic Assessment and Plan Patient examined. Assessment and plan formulated with Ann-Marie Ferreira PA-C. I agree with the above. Ann-Marie Ferreira September 12, 2016 14:45 Boubacar Weinberg DO September 13, 2016 11:01
[2016-09-13] VITALS: BP 151/59; PULSE 74; RESP 20; TEMP 97.9; O2SAT 95
[2016-09-13] MEDS: CHLORHEXIDINE GLUCONATE 2 % 1 PACK (2 CLOTHS) TOP SCH (04:00)
[2016-09-13 05:22] VITALS: BP 140/58; PULSE 78; RESP 20; TEMP 98.4; O2SAT 93
[2016-09-13] MEDS: SODIUM CHLORIDE 0.9% FLUSH 10 ML FLUSH SCH (07:56)
[2016-09-13] MEDS: LOSARTAN 50 MG TAB PO SCH (07:56)
[2016-09-13] MEDS: APIXABAN 5 MG TABLET PO SCH (07:57)
[2016-09-13] MEDS: OLANZapine ODT 5 MG TAB PO SCH (07:57)
[2016-09-13] MEDS: NIFEdipine 60 MG SUSTAINED RELEASE TAB PO SCH (07:57)
[2016-09-13] MEDS: VALPROIC ACID SYRUP 250 MG/5 ML UDC PO SCH (07:58)
[2016-09-13] MEDS: DOCUSATE SODIUM 100 MG CAP PO SCH (07:58)
[2016-09-13] MEDS: CIPROFLOXACIN 250 MG TAB PO SCH (07:58)
[2016-09-13 08:04] VITALS: BP 134/73; PULSE 75; RESP 18; TEMP 96.5; O2SAT 93
[2016-09-13] MEDS: ACETAMINOPHEN 325 MG TAB PO PRN (09:33)
[2016-09-13 12:04] VITALS: BP 155/72; PULSE 77; RESP 18; TEMP 95.5; O2SAT 93
--- NOTE | 2016-09-13 13:47 | HHI.FF ---
Face to Face Verification Diagnosis: (1) Bipolar I, most recent episode manic, severe with psychotic behavior (2) Pulmonary emboli (3) DVT (deep venous thrombosis) (4) COPD (chronic obstructive pulmonary disease) (5) Acute renal failure superimposed on stage 3 chronic kidney disease (6) HTN (hypertension) Physical Therapy Order: Evaluate and Treat, Improve ambulation, Strength and gait training Home Health Nursing Order: Medical education Signs/symptoms of disease process Medication education-adverse effect Nursing assessment with vital signs I have seen patient Niurka Canales on 09/13/16. My clinical findings support the need for the requested home health care services because: Ltd mobility - disease progression Patient has SOB Deconditioned w/ increased weakness Med compliance is questionable Limited ability to care for self Need for psychosocial assistance Impaired cognition/judgement Infection w/ risk of complications I certify that my clinical findings support that this patient is homebound because: Impaired cognitive ability/safety Unsafe to leave home unassisted Need for psychosocial assistance Unable to use public transportation Boubacar Weinberg DO September 13, 2016 13:47
--- NOTE | 2016-09-13 15:12 | HHI.PR ---
Subjective Remarks No new complaints. Objective Vitals Vital Signs Date Time Temp Pulse Resp B/P Pulse Ox O2 Delivery O2 Flow Rate FiO2 09/13/16 12:04 95.5 77 18 155/72 93 09/13/16 08:04 96.5 75 18 134/73 93 09/13/16 07:00 Room Air 09/13/16 05:22 98.4 78 20 140/58 93 09/13/16 00:00 97.9 74 20 151/59 95 09/12/16 20:00 97.8 80 18 143/68 90 09/12/16 19:00 Room Air 09/12/16 18:42 2.00 09/12/16 16:00 97.1 78 20 149/68 93 09/12/16 09/12/16 09/13/16 15:00 23:00 07:00 # Voids 4 4 3 # Bowel Movements 1 1 Result Diagram: 09/12/16 0749 09/09/16 [address] Angiography 09/07/16 0000 Signed Impressions: Service Date/Time: Wednesday, September 07, 2016 05:50 - CONCLUSION: 1. Examination positive for moderate size bilateral pulmonary emboli. Hamzah Varner MD Head CT 09/06/16 0000 Signed Impressions: Service Date/Time: Tuesday, September 06, 2016 04:37 - CONCLUSION: 1. No acute intracranial abnormalities. Cortical volume loss similar to November 2012. Hamzah Varner MD Objective Remarks General: NAD, Awake and alert, confused Chest: CTA Cardiac: Regular Abd: +BS. soft ND/NT Jennings cath in place Ext: LLE edema A/P Problem List: (1) Pulmonary emboli Status: Acute Plan: - Pt was admitted to psych unit for bipolar and psychosis. - She developed left leg swelling then AMS respiratory distress - LE US revealed DVT left popliteal/tibial/peritoneal veins - CTA chest revealed bilateral pulmonary emboli - Pit has acute on CKD, stage 3 and was started on Heparin gtt. - Pt would be poor candidate for Coumadin. - Pt tolerating Eliquis - Pt tolerating RA - course of cipro for UTI completed - leukocytosis has resolved - SNF placement was NOT able to be arranged to date. - POA requested that pt be discharged to home with C and home PT which I have arranged (2) DVT (deep venous thrombosis) Status: Acute Plan: - See above (3) Bipolar I, most recent episode manic, severe with psychotic behavior Status: Acute Plan: - Per psychiatry (4) HTN (hypertension) Status: Acute Plan: - She was refusing bp meds in psych unit - BP was rising back up - Cozaar 100mg po daily resumed on 09/09 - Procardia XL 60mg po daily was added back on 09/09 and BP is better today - Clonidine and Vasotec PRN - Monitor and add back as needed. (5) Acute renal failure superimposed on stage 3 chronic kidney disease Status: Acute Plan: - Improving. (6) Hypokalemia Status: Acute Plan: - Improved with replacement. - Repeat labs in AM (7) COPD (chronic obstructive pulmonary disease) Status: Chronic Boubacar Weinberg DO September 13, 2016 15:12
== END 2016-09-13 15:55 | disposition home health service (06) | DRG 299 ==
LOC: HIMN 03:20 → N05B 09-07 14:36
PROVIDERS: ADMIT Hospitalist; ATTEND Hospitalist
PROC: 0T9B70Z Drainage of Bladder with Drainage Device, Via Natural or Artificial Opening (ICD-10-PCS; principal; 2016-09-06)
DX: I82.432 Acute embolism and thrombosis of left popliteal vein (principal); I26.99 Other pulmonary embolism without acute cor pulmonale; N17.9 Acute kidney failure, unspecified; R06.00 Dyspnea, unspecified; F31.2 Bipolar disorder, current episode manic severe with psychotic features; N39.0 Urinary tract infection, site not specified; I82.441 Acute embolism and thrombosis of right tibial vein; I82.4Z1 Acute embolism and thrombosis of unspecified deep veins of right distal lower extremity; F03.90 Unspecified dementia, unspecified severity, without behavioral disturbance, psychotic disturbance, mood disturbance, and anxiety; I08.2 Rheumatic disorders of both aortic and tricuspid valves; J44.9 Chronic obstructive pulmonary disease, unspecified; N18.3 Chronic kidney disease, stage 3 (moderate); I12.9 Hypertensive chronic kidney disease with stage 1 through stage 4 chronic kidney disease, or unspecified chronic kidney disease; E78.5 Hyperlipidemia, unspecified; M10.9 Gout, unspecified; E87.6 Hypokalemia; Z87.828 Personal history of other (healed) physical injury and trauma; Z90.710 Acquired absence of both cervix and uterus
CPT/HCPCS: 36600; 70450; 71275; 80048; 80053; 80164; 81001; 82272; 82805; 83735; 84100; 84132; 85007; 85025; 85027; 85610; 85730; 87086; 87641; 93306; 94620; 94640; 94664; 94667; 94668; J1644; J3480; J7030; Q9967